=== PATIENT | male | born 1995 | race Caucasian/White ===

== ENCOUNTER 2018-08-29 19:45 | Emergency (ER) | payer SELFPAY ==
[2018-08-29 19:52] VITALS: BP 136/58; PULSE 89; RESP 14; TEMP 37.4; O2SAT 99
--- NOTE | 2018-08-29 19:59 | DI.RAD_ITS ---
SYMPTOM/DIAGNOSIS: PAIN, S/P FALL RIGHT HIP AND PELVIS: No acute fracture or dislocation is seen. The soft tissues are unremarkable. IMPRESSION: No acute abnormality.
--- NOTE | 2018-08-29 20:02 | ED.GENADUL_ITS ---
Discharge Plan Disposition Patient Disposition: HOME Condition: Stable Discharge Details Chief Complaint: Orthopedic Clinical Impression: Contusion of hip, right Primary Care Provider: Galdino Booker ED Provider: Maxwell Michaels Home Meds and New Rx's Prescriptions: No Action amoxicillin 500 MG capsule 500 mg PO BID Qty: 20 RF: 0 Discharge Instructions Instructions: Contusion in Adults (ED) Additional Instructions: You can take 1000mg tylenol and 600mg ibuprofen every 6 hours for pain as needed if pain continues next week see your primary care provider return to the emergency department if you have severe worsening of pain, or new symptoms such as chest pain or abdominal pain Medical Decision Making 22 yo male states yesterday he slipped and fell down a ramp, did not strike head or have loc. Has pain in the right hip especially with rom. Has no spine pain on exam, no headcahes or neck pain or abd tenderness. Intact distal sensation and pulses. Suspect contusion but will xray to eval for fx. Has no findings on exam to suggest cauda equina, urinating without difficulties and no saddle anesthesia xray negative on my read. If vrad agrees no acute findings will advise BALBIR and d/c home. Differential Diagnosis sprain, contusion, fx Imaging Data Radiologic Study: Attestation: I personally reviewed and interpreted this imaging study as follows: Imaging: X-Ray My impression: no acute findings HPI General Date/Time Provider Initiated Documentation: 08/29/18 19:50 . Limitations to Documentation: no limitations . Information obtained by: patient . History of Present Illness 22 year old M presents to the emergency department with the chief complaint of right hip pain, described as moderate, with intensity rated at 5. Quality is described as aching, Patient reports no radiation. Patient started experiencing this day(s) (1) and it has been constant. Rest improves symptom(s), Movement worsens symptoms . Patient notes no other symptoms.. Patient did receive the following treatments prior to arrival, none Related Data Home Medications Medication Instructions Recorded Confirmed amoxicillin 500 mg PO BID #20 capsule 09/04/17 Previous Rx's Medication Instructions Recorded amoxicillin 500 mg PO BID #20 capsule 09/04/17 Allergies Allergy/AdvReac Type Severity Reaction Status Date / Time No Known Allergies Allergy Unverified 08/29/18 19:55 Review of Systems Review of Systems All systems reviewed & are unremarkable except as noted in HPI and below Constitutional Denies chills, Denies fever(s) and Denies weakness Eyes Denies loss of vision ENT Denies change in voice Cardiovascular Denies chest pain and Denies dyspnea Respiratory Denies dyspnea Gastrointestinal Denies abdominal pain, Denies nausea and Denies vomiting Genitourinary Denies dysuria Integumentary/Breasts Denies rash Neurologic Denies loss of vision and Denies weakness PFSH Family History Mother No problems noted. Father Essential hypertension Antithrombin III deficiency Stroke Grandfather Personal history of malignant neoplasm Grandfather Personal history of malignant neoplasm Grandmother No problems noted. Grandmother No problems noted. Social History Smoking/Tobacco Use Status: Current every day Exam Const General: no acute distress Orientation: alert HENMT Head: normal to inspection Ears: external ears normal General nose exam: external nose normal Mouth: moist mucous membranes Eyes General: appearance normal, both eyes and all related structures Neck Neck: normal visual inspection Resp Effort & Inspection: normal respiratory effort and able to speak in complete sentences Cardio Rate: regular rate Skin General skin exam: no rashes or lesions noted Neuro General: alert and oriented x3 Extrem General: normal to inspection Psych Mental Status: mental status grossly normal
--- NOTE | 2018-08-29 20:48 | DI.VRAD_ITS ---
EXAM: XR Right Hip with Pelvis when Performed, 2 or 3 Views EXAM DATE/TIME: 08/29/2018 8:00 PM CLINICAL HISTORY: 22 years old, male; Injury or trauma; Fall; Work related; Initial encounter; Blunt trauma (contusions or hematomas); Right; Hip TECHNIQUE: XR Right hip with pelvis when performed, 2 or 3 views COMPARISON: No relevant prior studies available. FINDINGS: Bones/joints: Normal. No acute fracture. There is no evidence of malalignment or dislocation. Soft tissues: Normal. IMPRESSION: No acute findings. Dictated and Authenticated by: Nadir Cervantes MD. Ordering:TIFFANY Arreola MD
== END 2018-08-29 20:45 | disposition home or self-care (01) ==
LOC: ER 20:26
PROVIDERS: Emergency Provider Emergency Medicine; PCP Family Medicine
DX: S70.01XA Contusion of right hip, initial encounter (principal); W10.2XXA Fall (on)(from) incline, initial encounter
CPT/HCPCS: 99283; 73502; 99282

== ENCOUNTER 2019-05-14 10:07 | Emergency (ER) | payer OTHER, SELFPAY ==
[2019-05-14 10:09] VITALS: BP 118/59; PULSE 62; RESP 16; TEMP 36.9; O2SAT 99
--- NOTE | 2019-05-14 10:24 | DI.CT_ITS ---
EXAM: CT HEAD WO CLINICAL HISTORY: [place] after trauma. TECHNIQUE: A noncontrast cranial CT was performed. COMPARISON: HEAD AND CSPINE W/O CONTRAST from 04/09/2015 FINDINGS: There is a no evidence of an intra or extra-axial hemorrhage. There is no evidence of a mass. The donnell tricles are unremarkable. There is no evidence of a skull fracture. The images reveal some membrane t hickening in the ethmoid sinuses. The visualized portions of the maxillary sinuses are unremarkable. The frontal sinus is intact. There is no evidence of a mastoid effusion. IMPRESSION: No acute intracranial abnormality is demonstrated. Sinuses as visualized appear intact. There is no evidence of a mastoid effusion
--- NOTE | 2019-05-14 10:34 | ED.GENADUL_ITS ---
Discharge Plan Disposition Patient Disposition: HOME Condition: Stable Discharge Details Chief Complaint: Headache Clinical Impression: Contusion of head Primary Care Provider: Galdino Booker ED Provider: Timo Dave Home Meds and New Rx's Prescriptions: No Action No Known Home Meds RF: 0 Discharge Instructions Instructions: Contusion in Adults (ED) Additional Instructions: Home to rest. May use tylenol for minor aches and pains. Return for any acute concerns. Stand Alone Forms: Work Release Medical Decision Making 23-year-old male presents from work after being struck in the left christian by a hydraulic arm at work. He now has mild discomfort but no true pain. Tender overlying the christian on exam, given the size of the equipment that struck him, he is referred for CT scan of the head HPI General Mode of arrival: ambulatory . Date/Time Provider Initiated Documentation: 05/14/19 10:14 . Limitations to Documentation: no limitations . Information obtained by: patient . History of Present Illness 23 year old M presents to the emergency department with the chief complaint of Left christian pain after struck at work, described as mild, and is localized to the head and left. Patient reports no radiation. Patient started experiencing this hour(s) and it has been constant. No relieving factors improve symptom(s), No exacerbating factors reported . Patient notes no other symptoms.; denies nausea/vomiting and syncope. Patient did receive the following treatments prior to arrival, none Related Data Home Medications Medication Instructions Recorded Confirmed Unknown [No Known Home Meds] 05/14/19 05/14/19 Allergies Allergy/AdvReac Type Severity Reaction Status Date / Time No Known Allergies Allergy Unverified 05/14/19 10:16 General Stated Complaint: Headache MJ: 3 Review of Systems Review of Systems Narrative: Denies headache. Denies neck pain. Was not pushed to the ground. No loss of consciousness. Feels mildly out of sorts. 6 systems reviewed and negative. PFSH Family History Mother No problems noted. Father Essential hypertension Antithrombin III deficiency Stroke Grandfather Personal history of malignant neoplasm BREAST Grandfather Personal history of malignant neoplasm COLON Grandmother No problems noted. Grandmother No problems noted. Social History Smoking/Tobacco Use Status: Current every day Alcohol Intake: current Alcohol Intake frequency: a few times a week Drug use: Daily Substance use type: marijuana Do you feel safe at home: Yes Do you feel safe in your relationship?: Yes Exam Narrative Exam Narrative: GEN: awake, alert, oriented 3. Pleasant, well groomed, interactive. HEAD: Normocephalic, atraumatic, left christian tender to palpation but no significant swelling. ENT: Mucous membranes moist, oropharynx unremarkable, External ear exam unremarkable, TMs clear bilaterally EYES: PERRL, EOMI NECK: Full ROM, no ANTHONY, no menigismus CHEST/RESP: Nontender, clear to auscultation bilateral, no wheeze/rhonchi/rales CARDIOVASCULAR: RRR, no murmur, rub shahab. 2+ Rad pulse bilateral ABDOMEN: Soft, nontender, no mass. +Bowel sounds EXT: Full ROM, no edema, no rash Neuro: Grossly normal neurologic exam, conversant, interactive. Psych: Speech fluent, thoughts congruent, affect normal Course Vital Signs Vital signs: Vital Signs Temperature 36.9 C 05/14/19 10:09 Pulse 62 05/14/19 10:09 Respiratory Rate 16 05/14/19 10:09 Blood Pressure 118/59 L 05/14/19 10:09 Pulse Oximetry 99 05/14/19 10:09 Temperature 36.9 C 05/14/19 10:09 Temperature Source Skin 05/14/19 10:09 Pulse 62 05/14/19 10:09 Respiratory Rate 16 05/14/19 10:09 Respiratory Effort 05/14/19 10:16 Blood Pressure 118/59 L 05/14/19 10:09 Blood Pressure Position Sitting 05/14/19 10:09 Pulse Oximetry 99 05/14/19 10:09 Oxygen Delivery Method Room Air 05/14/19 10:09 Oxygen Flow Rate 0 05/14/19 10:09 Pain Level 2 05/14/19 10:18
[2019-05-14 11:33] VITALS: BP 111/65; PULSE 58; RESP 14; TEMP 37; O2SAT 98
== END 2019-05-14 11:37 | disposition home or self-care (01) ==
PROVIDERS: Emergency Provider Emergency Medicine; PCP Family Medicine
DX: S00.03XA Contusion of scalp, initial encounter (principal); W31.89XA Contact with other specified machinery, initial encounter; Y99.0 Civilian activity done for income or pay; R42 Dizziness and giddiness
CPT/HCPCS: 99284; 70450

== ENCOUNTER 2019-07-01 09:03 | Emergency (ER) | payer SELFPAY ==
[2019-07-01 09:08] VITALS: BP 133/77; PULSE 52; RESP 16; TEMP 36.5; O2SAT 100
--- NOTE | 2019-07-01 09:08 | ED.GENADUL_ITS ---
Discharge Plan Disposition Patient Disposition: HOME Condition: Stable Discharge Details Chief Complaint: Abd Prob Clinical Impression: Epigastric abdominal pain, Nausea Primary Care Provider: None,None ED Provider: Salima Staton Home Meds and New Rx's Prescriptions: New famotidine [Pepcid] 20 mg tablet 20 mg PO DAILY Qty: 14 RF: 0 ondansetron HCl [Zofran] 4 mg tablet 4 mg PO Q6H PRN (Reason: nausea and vomiting) Qty: 7 RF: 0 Discharge Instructions Instructions: Acute Nausea and Vomiting (ED), Epigastric Pain (ED) Additional Instructions: Drink plenty of fluids and get plenty of rest. Take steps to avoid or cut back smoking, alcohol and excessive coffee drinking as this may be worsening her symptoms. You will receive a call from care management regarding a follow-up appointment with the primary care doctor and with general surgery. You can also call general surgery to try to schedule the appointment. Return to the emergency department if you develop any worsening or new concerning symptoms. Stand Alone Forms: Work Release Referrals: Arlin Pop DO [OSTEOPATHIC DOCTOR] - Discharge Data Discharge Physician: Salima Staton Medical Decision Making 0915 -- 23-year-old male with constant sharp and aching epigastric abdominal pain for the past 7 months, worse with drinking coffee and better with eating grains and breads. Patient is a smoker, heavy coffee drinker, and frequent alcohol drinker. He d enies fever, urinary symptoms or vomiting. He has 4-5 bowel movements daily which is increased compared to his norm over the past 2 months, but they are near formed, dark brown, without black or tarry stools or bright red bleeding. Patient appears nontoxic. He has tenderness to palpation his epigastrium and right upper quadrant. Differential diagnosis includes GERD, gastritis, PUD, cholelithiasis, cholecystitis, pancreatitis. We will check screening labs, ultrasound and give a dose of Zofran, Pepcid and GI cocktail reassess. 1020 --patient reassessed -patient texting on phone on reevaluation. He states his symptoms are somewhat improved. Labs reviewed and unremarkable. Still awaiting to go to ultrasound. 1125 --ultrasound negative. Patient feels better and feels good to go home. He was placed on care management list to arrange for a follow-up appoint with the primary care doctor to establish care and also for a follow-up appointment with general surgery for evaluation and consideration of possible upper endoscopy. Will give a prescription for Pepcid and Zofran. He is advised to cut back on alcohol, coffee and cigarette smoking as this may be exacerbating his symptoms. He is advised to return here with any worsening or concerning symptoms. Medical Records Medical records reviewed: Yes I reviewed the patient's medical records. Lab Data Lab results reviewed: Yes I reviewed the patient's lab results. Labs: Laboratory Tests Range/Units 07/01/19 07/01/19 09:35 09:35 WBC (4.4-10.8) k/cumm 5.37 RBC (4.50-6.00) m/cumm 4.76 Hgb (13.5-17.5) g/dL 14.4 Hct (40.0-50.0) % 43.8 MCV (80-95) fL 92.0 MCH (27.0-33.0) pg 30.3 MCHC (32.0-36.0) g/dL 32.9 RDW (11.8-14.1) % 12.7 Plt Count (130-400) x1000/uL 243 MPV (8.0-11.0) fL 9.9 Immature Gran % 0.2 Neutrophils % 58.3 Lymphocytes % 29.8 Monocytes % 9.7 Eosinophils % 1.1 Basophils % 0.9 Absolute Neutrophils (1.2-6.7) k/cumm 3.13 Absolute Lymphocytes (1.2-3.4) k/cumm 1.60 Absolute Monocytes (0.11-0.7) k/cumm 0.52 Absolute Eosinophils (0.0-0.7) k/cumm 0.06 Absolute Basophils (0.0-0.2) k/cumm 0.05 Sodium (136-145) mmol/L 141 Potassium (3.5-5.1) mmol/L 3.6 Chloride (98-107) mmol/L 104 Carbon Dioxide (21.0-32.0) mmol/L 28.7 Anion Gap (3-11) mmol/L 8.3 BUN (7-18) mg/dL 15 Creatinine (0.70-1.30) mg/dL 1.02 Estimated GFR/1.73 m2 (mL/min/1.73m2) >= 60.00 Glucose (70-100) mg/dL 123 H Calcium (8.5-10.1) mg/dL 8.7 Total Bilirubin (0.2-1.0) mg/dL 0.3 AST (15-37) U/L 12 L ALT (16-63) U/L 24 Alkaline Phosphatase (46-116) U/L 54 Total Protein (6.4-8.2) g/dL 7.3 Albumin (3.4-5.0) g/dL 4.0 Lipase (73-393) U/L 135 HPI General Mode of arrival: ambulatory . Date/Time Provider Initiated Documentation: 07/01/19 09:05 . Limitations to Documentation: no limitations . Information obtained by: patient . History of Present Illness described as moderate, with intensity rated at 3. Quality is described as stabbing and aching, and is localized to the abdomen (epigastrium). Patient abdomen (to RUQ/LUQ). Patient started experiencing this month(s) (7) and it has been constant. other things that improve symptom(s), (grains, carbs, breads) Other factors that worsen symptoms (coffee) . Patient notes chest pain (intermittent, rare, none now) and other (occasional nausea, dry heaving, no vomiting); denies cough, diaphoresis, fever/chills, headaches, loss of appetite, malaise, rash, shortness of breath and weakness. Patient did receive the following treatments prior to arrival, none Related Data Home Medications Medication Instructions Recorded Confirmed famotidine [Pepcid] 20 mg PO DAILY #14 tab 07/01/19 ondansetron HCl [Zofran] 4 mg PO Q6H PRN #7 tab 07/01/19 Previous Rx's Medication Instructions Recorded famotidine [Pepcid] 20 mg PO DAILY #14 tab 07/01/19 ondansetron HCl [Zofran] 4 mg PO Q6H PRN #7 tab 07/01/19 Allergies Allergy/AdvReac Type Severity Reaction Status Date / Time No Known Allergies Allergy Unverified 07/01/19 09:12 General MJ: 3 Review of Systems All systems reviewed & are unremarkable except as noted in HPI and below Constitutional Constitutional: Reports as per HPI, Denies chills and Denies fever(s) Eyes Eyes: Denies blurry vision ENT Ears, Nose, Mouth, and Throat: Denies dizziness, Denies sore throat and Denies throat swelling Cardiovascular Cardiovascular: Denies chest pain and Denies dyspnea Respiratory Respiratory: Denies cough and Denies dyspnea Gastrointestinal Gastrointestinal: Reports abdominal pain, Denies diarrhea, Reports nausea and Denies vomiting Genitourinary Genitourinary: Denies hematuria and Denies dysuria Musculoskeletal Musculoskeletal: Denies back pain and Denies numbness Integumentary/Breasts Skin/Breast: Denies lesions and Denies rash Neurologic Neurologic: Denies dizziness, Denies focal weakness and Denies numbness Allergic/Immunologic Allergic/Immunologic: Denies throat swelling [facility] Medical History (Updated 07/01/19 @ 09:39 by Salima Staton DO) Antithrombin deficiency (Acute) Chronic pain in right shoulder (Acute) Depression (Chronic) Surgical History H/O wisdom tooth extraction (Acute) S/p bilateral myringotomy with tube placement (Acute) Family History Mother No problems noted. Father Essential hypertension Antithrombin III deficiency Stroke Grandfather Personal history of malignant neoplasm BREAST Grandfather Personal history of malignant neoplasm COLON Grandmother No problems noted. Grandmother No problems noted. Social History (Updated 07/01/19 @ 09:40 by Salima Staton DO) Smoking/Tobacco Use Status: Current every day Alcohol Intake: current Alcohol Intake frequency: 0-2 drinks per day Drug use: Daily Substance use type: marijuana Do you feel safe at home: Yes Do you feel safe in your relationship?: Yes Exam Const General: cooperative, healthy appearing, no acute distress and disheveled HENMT Head: normal to inspection Face and sinus: normal facial exam Eyes General: appearance normal, both eyes and all related structures EOM: EOM intact bilaterally Neck Neck: normal visual inspection and No submandibular swelling Lymphatic: no lymphadenopathy noted Chest Chest: normal inspection of the chest and no tenderness Resp Effort & Inspection: normal respiratory effort and able to speak in complete sentences Auscultation: clear to auscultation bilaterally Cardio Rate: regular rate Rhythm: regular rhythm GI Inspection: normal to inspection, no abdominal wall ecchymosis and non-distended Palpation: soft, not firm, not rigid and tender in the epigastrum and in the RUQ Auscultation: normal bowel sounds Back/Spine/Pelvis Back: no CVA tenderness Skin General skin exam: no rashes or lesions noted Neuro General: alert, awake and oriented x3 Cognition: normal cognition Speech: speech normal Motor: muscle tone normal throughout Sensory Exam: no sensory deficits noted Extrem General: normal to inspection, full ROM, normal capillary refill, no calf tenderness bilaterally and no edema Psych Appearance: grossly normal Mental Status: mental status grossly normal Speech and Movement: speech and movement normal Affect: normal affect
--- NOTE | 2019-07-01 09:28 | DI.US_ITS ---
EXAM: US ABDOMEN US ABDOMEN CLINICAL HISTORY: epigastric/RUQ pain, r/o cholecystitis/lithiasis. epigastric/RUQ pain, r/o cholecystitis/lithiasis TECHNIQUE: Ultrasound abdomen performed using standard protocol. COMPARISON: No exams were available for comparison FINDINGS: LIVER: Normal. GALLBLADDER: No evidence of cholelithiasis. No evidence of wall thickening. No pericholecystic fluid identified. KIDNEYS: Kidneys are symmetric in size. No evidence of renal calculi. No evidence of hydronephrosis. No renal mass or cyst identified. BILIARY SYSTEM: Common bile duct measures < 7 mm. No intrahepatic biliary ductal dilation. PATRICIA'S SIGN: Negative. PANCREAS: Normal where visualized. SPLEEN: Not enlarged. ABDOMINAL AORTA AND IVC: Visualized portions normal caliber. ASCITES: None seen. IMPRESSION: Normal sonographic appearance of the upper abdomen.
[2019-07-01 09:41] LABS: Abs Immature Grans 0.01 k/cumm (0.0-0.09); Absolute Basophil Count 0.05 k/cumm (0.0-0.2); Absolute Eosinophil Count 0.06 k/cumm (0.0-0.7); Absolute Monocyte Count 0.52 k/cumm (0.11-0.7); Absolute Neutrophil Count 3.13 k/cumm (1.2-6.7); Basophils % 0.9; Eosinophils % 1.1; HCT 43.8 % (40.0-50.0); HGB 14.4 g/dL (13.5-17.5); Immature Grans % 0.2; Lymphocytes % 29.8; Mean Corp. HGB Concentration 32.9 g/dL (32.0-36.0); Mean Corpuscular Hemoglobin 30.3 pg (27.0-33.0); Mean Platelet Volume 9.9 fL (8.0-11.0); Monocytes % 9.7; Neutrophils % 58.3; Platelet Count 243 x1000/uL (130-400); RBC 4.76 m/cumm (4.50-6.00); RBC Distribution Width 12.7 % (11.8-14.1); White Blood Cell Count 5.37 k/cumm (4.4-10.8)
[2019-07-01] MEDS: Famotidine 20 MG TAB PO (09:41)
[2019-07-01] MEDS: Ondansetron O.D.T. 4 MG TABEF PO (09:41)
[2019-07-01 09:59] LABS: ALT 24 U/L (16-63); AST 12 U/L (15-37); Alkaline Phosphatase 54 U/L (46-116); Anion Gap 8.3 mmol/L (3-11); BUN 15 mg/dL (7-18); Bilirubin, Total 0.3 mg/dL (0.2-1.0); CO2 28.7 mmol/L (21.0-32.0); CREATININE 1.02 mg/dL (0.70-1.30); Calcium 8.7 mg/dL (8.5-10.1); Chloride 104 mmol/L (98-107); Glucose 123 mg/dL (70-100); Lipase 135 U/L (73-393); Potassium 3.6 mmol/L (3.5-5.1); Sodium 141 mmol/L (136-145); Total Protein 7.3 g/dL (6.4-8.2)
[2019-07-01 10:22] VITALS: BP 124/57; PULSE 63; O2SAT 100
== END 2019-07-01 11:42 | disposition home or self-care (01) ==
PROVIDERS: Emergency Provider Physician Assistant
DX: R10.13 Epigastric pain (principal); R11.0 Nausea; F17.210 Nicotine dependence, cigarettes, uncomplicated
CPT/HCPCS: 36415; 80053; 83690; 99283; 76700; 85025

== ENCOUNTER 2019-08-21 09:05 | Outpatient (REF) | payer SELFPAY ==
[2019-08-21 12:27] LABS: HCT 44.8 % (40.0-50.0); HGB 14.5 g/dL (13.5-17.5); Mean Corp. HGB Concentration 32.4 g/dL (32.0-36.0); Mean Corpuscular Volume 92.8 fL (80-95); Mean Platelet Volume 10.8 fL (8.0-11.0); Platelet Count 260 x1000/uL (130-400); RBC 4.83 m/cumm (4.50-6.00); White Blood Cell Count 5.92 k/cumm (4.4-10.8)
[2019-08-21 12:37] LABS: ALT 23 U/L (16-63); AST 17 U/L (15-37); Albumin 4.3 g/dL (3.4-5.0); Alkaline Phosphatase 53 U/L (46-116); Anion Gap 8.5 mmol/L (3-11); BUN 14 mg/dL (7-18); Bilirubin, Total 0.3 mg/dL (0.2-1.0); CO2 29.5 mmol/L (21.0-32.0); Calcium 9.2 mg/dL (8.5-10.1); Chloride 105 mmol/L (98-107); Glucose 96 mg/dL (74-106); Potassium 4.1 mmol/L (3.5-5.1); Sodium 143 mmol/L (136-145); Total Protein 7.4 g/dL (6.4-8.2)
[2019-08-21 13:38] LABS: Bilirubin Negative (Negative); Blood Negative (Negative); Clarity Clear (Clear); Glucose Negative (Negative); Ketones Negative (Negative); Leukocyte Esterase Negative (Negative); Nitrite Negative (Negative)
[2019-08-24 15:05] LABS: IgA 237 mg/dL (85-499); Tissue Transglutaminase IgA <1.2 U/mL (<4.0)
== END 2019-08-21 09:25 ==
LOC: NCHCN 09:05
PROVIDERS: PCP Nurse Practitioner Family; Visit Provider Nurse Practitioner Family
DX: R10.13 Epigastric pain (principal)
CPT/HCPCS: 80053; 82784; 83516; 85027; 81003

== ENCOUNTER 2019-08-22 11:25 | Outpatient (REF) | payer SELFPAY ==
[2019-08-24 12:01] LABS: Campylobacter PCR Negative (Negative); Salmonella PCR Negative (Negative); Shiga Toxin PCR Negative (Negative); Shigella/Enteroinvasive Ecoli Negative (Negative)
== END 2019-08-22 11:45 ==
LOC: NCHCN 11:25
PROVIDERS: PCP Nurse Practitioner Family; Visit Provider Nurse Practitioner Family
DX: R10.13 Epigastric pain (principal)
CPT/HCPCS: 87329; 87505; 83630; 87324

== ENCOUNTER 2019-09-21 12:54 | Outpatient (REF) | payer OTHER, SELFPAY ==
[2019-09-21 18:34] LABS: HCT 43.6 % (40.0-50.0); HGB 14.5 g/dL (13.5-17.5); Mean Corp. HGB Concentration 33.3 g/dL (32.0-36.0); Mean Corpuscular Hemoglobin 30.5 pg (27.0-33.0); Mean Corpuscular Volume 91.6 fL (80-95); Mean Platelet Volume 10.4 fL (8.0-11.0); Platelet Count 231 x1000/uL (130-400); RBC 4.76 m/cumm (4.50-6.00); RBC Distribution Width 13.1 % (11.8-14.1); White Blood Cell Count 6.86 k/cumm (4.4-10.8)
[2019-09-21 19:11] LABS: C-Reactive Protein 0.39 mg/dL (0.0-0.3)
== END 2019-09-21 13:14 ==
LOC: NCHCN 12:54
PROVIDERS: PCP Nurse Practitioner Family; Visit Provider Nurse Practitioner Family
DX: R10.13 Epigastric pain (principal); R19.7 Diarrhea, unspecified
CPT/HCPCS: 85027; 86140

== ENCOUNTER 2019-09-28 01:40 | Outpatient (CLI) | payer OTHER, SELFPAY ==
--- NOTE | 2019-09-28 07:28 | DI.US_ITS ---
EXAM: US ABDOMEN CLINICAL HISTORY: EPIGASTRIC PAIN, R10.13, DIARRHEA, R19.7 TECHNIQUE: Ultrasound abdomen performed using standard protocol. COMPARISON: US ABDOMEN from 07/01/2019 FINDINGS: LIVER: Normal echogenicity. Mild hepatomegaly. Hepatopetal flow is seen through the portal vein. GALLBLADDER: No evidence of cholelithiasis. No evidence of wall thickening. No pericholecystic fluid identified. KIDNEYS: Kidneys are symmetric in size. No evidence of renal calculi. No evidence of hydronephrosis. No renal mass or cyst identified. BILIARY SYSTEM: Common bile duct measures 2 mm. No intrahepatic biliary ductal dilation. PATRICIA'S SIGN: Negative. PANCREAS: Normal where visualized. SPLEEN: Not enlarged. ABDOMINAL AORTA AND IVC: Visualized portions normal caliber. ASCITES: None seen. IMPRESSION: Mild hepatomegaly.
== END 2019-09-28 02:00 ==
PROVIDERS: PCP Nurse Practitioner Family; Visit Provider Nurse Practitioner Family
DX: R10.13 Epigastric pain (principal); R19.7 Diarrhea, unspecified; R16.0 Hepatomegaly, not elsewhere classified
CPT/HCPCS: 76700

== ENCOUNTER 2019-11-02 12:15 | Emergency (ER) | payer OTHER, SELFPAY ==
[2019-11-02 12:20] VITALS: BP 117/64; PULSE 54; RESP 16; TEMP 36.4; O2SAT 98
--- NOTE | 2019-11-02 13:55 | DI.RAD_ITS ---
EXAM: XR THORACIC SPINE COMPLETE CLINICAL HISTORY: pain. TECHNIQUE: 2D digital imaging was performed. COMPARISON: No exams were available for comparison FINDINGS: BONES: There is no fracture or destructive lesion. The vertebral bodies and posterior elements are un remarkable. DISKS:Alignment is within normal limits. Interverebral disc spaces are maintained. SOFT TISSUE: Visualized lungs are clear. IMPRESSION: Unremarkable radiographs of the thoracic spine. DATA REPOSITORY: RADIATION DOSE DELIVERED:
[2019-11-02 14:48] VITALS: BP 118/67; PULSE 48; RESP 20; O2SAT 99
--- NOTE | 2019-11-02 15:57 | W.ED.GENAD ---
Discharge Plan Disposition Patient Disposition: HOME Condition: Stable Discharge Details Chief Complaint: Orthopedic Clinical Impression: Muscle spasm Primary Care Provider: Arturo Maldonado ED Provider: Rhonda Chatman Home Meds and New Rx's Prescriptions: New cyclobenzaprine 10 mg tablet 10 mg PO TID PRN (Reason: muscle spasm) Qty: 10 RF: 0 No Action acetaminophen [Acetaminophen Extra Strength] 500 mg Tablet 1,000 mg PO QID PRNRF: 0 Discharge Instructions Instructions: Muscle Spasm (ED) Additional Instructions: Drink plenty of fluids. Rest activities as tolerated. Avoid heavy lifting. Use Motrin or Tylenol for soreness if needed. Ice for the next 5 days then you may use heat thereafter. Use muscle relaxant as prescribed if needed for pain. Follow-up with PCP if not improving the next 5 days. Return for any worsening, concerns or alarming symptoms sooner if needed Stand Alone Forms: Work Release Discharge Data Discharge Date/Time-TO BE ENTERED AT DEPARTURE: 11/02/19 15:44 Medical Decision Making 24-year-old patient presenting for pain in his back and shoulder which he reports began after throwing and moving 3 cords of firewood. Patient reports pain is worse with range of motion of arm. Patient denies chest pain, difficulty beating shortness of breath or wheezing. Patient denies any neck pain associated. Patient denies any paresthesias associated. On physical exam patient has thoracic pain with palpation as well as paraspinal tenderness along the left side of his thoracic spine. Plan to check x-ray of spine given patient's complaints of pain. Patient well-appearing, patient's vital signs reviewed. X-ray reveals unremarkable. Recommend a muscle relaxant, rest, ice. The patient was stable and requested discharge. Prior to discharge, my usual and customary return precautions were reviewed with the patient - this included follow-up instructions and reasons to return to the Emergency Department if conditions worsens, does not improve as expected, or other new concerns arise. Patient did leave the emergency department prior to discharge. Nurse will contact patient and send prescription as well as discharge papers to the patient this was his request prior to leaving. HPI General Date/Time Provider Initiated Documentation: 11/02/19 12:39. HPI Narrative: This is a 24-year-old patient presenting the emergency room with complaints of left shoulder and back pain. Patient indicates the shoulder blade area as maximum site of pain. Patient reports pain noted after throwing firewood over the weekend. Patient reports he moved approximately 3 cords of firewood. Patient denied any obvious pain immediately thereafter but did subsequently develop pain in the left shoulder blade area. Patient denies any focal injury, or falls. Patient denies numbness, tingling or weakness associated in arms or legs. Patient denies neck pain associated. Patient reports full range of motion of neck. Patient reports pain with left shoulder range of motion. Patient denies any other sites of pain or concerns. Denies any chest pain, difficulty beating shortness of breath or wheezing. Patient ambulating without difficulty. Related Data Home Medications Medication Instructions Recorded Confirmed acetaminophen [Acetaminophen Extra 1,000 mg PO QID PRN 11/02/19 11/02/19 Strength] cyclobenzaprine 10 mg PO TID PRN #10 tab 11/02/19 Previous Rx's Medication Instructions Recorded cyclobenzaprine 10 mg PO TID PRN #10 tab 11/02/19 Allergies Allergy/AdvReac Type Severity Reaction Status Date / Time No Known Allergies Allergy Unverified 11/02/19 12:23 General Stated Complaint: Orthopedic MJ: 4 Review of Systems All systems reviewed & are unremarkable except as noted in HPI and below Constitutional Constitutional: Denies headache(s) and Denies malaise ENT Ears, Nose, Mouth, and Throat: Denies headache(s) and Denies neck pain Cardiovascular Cardiovascular: Denies dyspnea and Denies dyspnea on exertion Respiratory Respiratory: Denies cough, Denies pain on inspiration, Denies pain with cough, Denies dyspnea and Denies dyspnea on exertion Musculoskeletal Musculoskeletal: Reports back pain, Denies deformity, Denies neck pain, Denies numbness, Denies stiffness and Denies tingling Neurologic Neurologic: Denies headache(s), Denies numbness and Denies tingling [facility] Medical History Antithrombin deficiency (Acute) Chronic pain in right shoulder (Acute) Depression (Chronic) Surgical History H/O wisdom tooth extraction (Acute) S/p bilateral myringotomy with tube placement (Acute) Social History Smoking/Tobacco Use Status: Current every day Alcohol Intake: current Alcohol Intake frequency: a few times a week Drug use: Daily Substance use type: marijuana Do you feel safe at home: Yes Do you feel safe in your relationship?: Yes Exam Narrative Exam Narrative: CONST: Healthy appearing patient, in no acute distress. Well hydrated. Alert and oriented. NECK: Normal visual inspection. FROM. Trachea midline. No Midline tenderness. CHEST: Normal insepection of the chest. RESP: Normal respiratory effort. Speaking full sentences. No cough. No audible wheezing. No retractions. CARDIO: No JVD. No murmur. Regular rate and rhythm MUSCULOSKELETAL: Normal Gait. FROM of all extremities. No focal tenderness of left shoulder anteriorly or posteriorly. No clavicle pain with palpation. No humeral pain with palpation of elbow pain with palpation but forearm pain with palpation wrist pain with palpation. Full range of motion of left arm. Back: no cervical pain with palpation, patient does have mild thoracic pain with palpation on exam of the midline. Paraspinal tenderness is present on the left. No lumbar tenderness with palpation SKIN: Normal. Dry. No rashes. NEURO: Alert and awake. Speech clear. PSYCH: Normal affect. Cooperative. Course Vital Signs Vital signs: Vital Signs Temperature 36.4 C L 11/02/19 12:20 Pulse 54 L 11/02/19 12:20 Respiratory Rate 16 11/02/19 12:20 Blood Pressure 117/64 11/02/19 12:20 Pulse Oximetry 98 11/02/19 12:20 Temperature 36.4 C L 11/02/19 12:20 Temperature Source Skin 11/02/19 12:20 Pulse 48 L 11/02/19 14:48 Respiratory Rate 20 11/02/19 14:48 Respiratory Effort Non-Labored 11/02/19 12:23 Blood Pressure 118/67 11/02/19 14:48 Blood Pressure Position Sitting 11/02/19 12:20 Pulse Oximetry 99 11/02/19 14:48 Oxygen Delivery Method Room Air 11/02/19 14:48 Oxygen Flow Rate 0 11/02/19 14:48 Pain Level 5 11/02/19 14:48 Comment 11/02/19 12:20
== END 2019-11-02 15:44 | disposition home or self-care (01) ==
PROVIDERS: Emergency Provider Physician Assistant; PCP Nurse Practitioner Family
DX: M62.830 Muscle spasm of back (principal); M62.838 Other muscle spasm; X50.3XXA Overexertion from repetitive movements, initial encounter
CPT/HCPCS: 99284; 72072; 99283

== ENCOUNTER 2020-02-08 18:12 | Outpatient (REF) | payer OTHER, SELFPAY ==
[2020-02-09 09:18] LABS: HBs Antibody, Quant 7.8 mIU/mL (See Note); Hepatitis B Surface Ab Negative (See Note); Hepatitis B Surface Ag Negative (Negative)
[2020-02-09 09:55] LABS: HIV-1/2 Ag & Ab Screen Negative (Negative)
[2020-02-09 10:01] LABS: Syphilis Serology (RPR) Negative (Negative)
[2020-02-10 08:57] LABS: Chlamydia Result Negative (Negative); GC Result Negative (Negative)
== END 2020-02-08 18:32 ==
LOC: NCHCN 18:12
PROVIDERS: PCP Nurse Practitioner Family; Visit Provider Nurse Practitioner Family
DX: Z20.2 Contact with and (suspected) exposure to infections with a predominantly sexual mode of transmission (principal); Z11.59 Encounter for screening for other viral diseases; Z11.4 Encounter for screening for human immunodeficiency virus [HIV]; Z11.3 Encounter for screening for infections with a predominantly sexual mode of transmission
CPT/HCPCS: 86706; 87340; 87389; 87491; 87591; 86592

== ENCOUNTER 2020-08-21 15:14 | Emergency (ER) | payer SELFPAY ==
[2020-08-21 15:19] VITALS: PULSE 81; RESP 16; TEMP 36.5; O2SAT 95
--- NOTE | 2020-08-21 15:41 | W.ED.GENAD ---
Discharge Plan Disposition Patient Disposition: HOME Condition: Stable Discharge Details Clinical Impression: Back pain Primary Care Provider: Arturo Maldonado ED Provider: Shahid Arias Home Meds and New Rx's Prescriptions: New ibuprofen 800 mg tablet 800 mg PO TID 10 Days Qty: 30 RF: 0 Discharge Instructions Instructions: Back Pain (ED) Additional Instructions: Motrin as directed. Gentle stretching as tolerated. Cool and/or warm compresses every 2 hours for 20 minutes. Please watch for new or worsening symptoms and return to the ER for any concerns. I am giving you a work note for the next 3 days. I strongly recommend contacting your primary care provider tomorrow for prompt outpatient reevaluation. If your symptoms are not improving with conservative therapy then physical therapy and/or referral to orthopedics for potential injection may be indicated. Stand Alone Forms: Work Release Discharge Data Discharge Date/Time-TO BE ENTERED AT DEPARTURE: 08/21/20 15:49 Medical Decision Making This is a 24-year-old gentleman who injured his left lower back 3 days ago while at work. He states he was moving heavy furniture and accidentally tweaked his back. He denies fever, midline point tenderness, abdominal pain, pain rating into his groin, down his leg. Denies numbness, tingling, weakness. Denies bowel or bladder incontinence-retention. Clinically this appears to musculoskeletal in nature. He is neuro, vascular, tendon intact. He has not taken any [id number] medications for his discomfort. Given the mechanism of injury, lack of neurologic symptoms, lack of midline point tenderness, do not believe that emergent x-ray is indicated here in the ER. Discussed my thought process with patient, he is agreeable to this. We discussed conservative therapy of anti-inflammatory medication, gentle stretching, cool and/or warm compresses, and the importance of outpatient follow-up. If conservative therapy does not help his discomfort that he may require injection over the SI joint, referral to PT, orthopedics, advanced imaging, etc. Patient understands this and has no additional questions or concerns. 60 IM Toradol given prior to discharge. Patient remains neurologically intact. Able to ambulate from the ER without difficulty. Medical Records Medical records reviewed: Yes I reviewed the patient's medical records. HPI General Mode of arrival: ambulatory. Date/Time Provider Initiated Documentation: 08/21/20 15:25. Limitations to Documentation: no limitations. Information obtained by: patient. HPI Narrative: This is a 24-year-old gentleman with no significant past medical history. He reports that on Saturday while at work he was moving a heavy piece of furniture, stepped awkwardly tweaking his left lower back. He reports moderate pain ever since, worse with movement. Denies radiation of pain into his abdomen, down his leg, into his groin. Denies numbness, tingling, weakness bowel or bladder retention or incontinence. He has never injured his back before. He has not taken any [id number]-nfo-[id number] medications for his symptoms. Related Data Home Medications Medication Instructions Recorded Confirmed ibuprofen 800 mg PO TID 10 Days #30 tab 08/21/20 Previous Rx's Medication Instructions Recorded ibuprofen 800 mg PO TID 10 Days #30 tab 08/21/20 Allergies Allergy/AdvReac Type Severity Reaction Status Date / Time No Known Allergies Allergy Unverified 08/21/20 15:23 General Stated Complaint: Nk/Back Pain MJ: 4 Review of Systems Constitutional Constitutional: Denies fever(s) and Denies weakness Gastrointestinal Gastrointestinal: Denies abdominal pain, Denies constipation, Denies fecal incontinence, Denies nausea and Denies vomiting Genitourinary Genitourinary: Denies difficulty urinating and Denies urinary incontinence Musculoskeletal Musculoskeletal: Reports back pain, Denies arthralgias, Denies numbness and Denies tingling Integumentary/Breasts Skin/Breast: Denies rash Neurologic Neurologic: Denies numbness, Denies tingling and Denies weakness [facility] Medical History Antithrombin deficiency Chronic pain in right shoulder Depression Surgical History H/O wisdom tooth extraction S/p bilateral myringotomy with tube placement Family History Mother No problems noted. Father Essential hypertension Antithrombin III deficiency Stroke Grandfather Personal history of malignant neoplasm BREAST Grandfather Personal history of malignant neoplasm COLON Grandmother No problems noted. Grandmother No problems noted. Social History Smoking/Tobacco Use Status: Current every day Smoking risk assessment performed?: Yes Alcohol Intake: current Alcohol Intake frequency: a few times a week Alcohol type: hard liquor Drug use: Daily Substance use type: marijuana Do you feel safe at home: Yes Do you feel safe in your relationship?: Yes Exam Const General: cooperative, healthy appearing, comfortable and no acute distress Orientation: alert and awake [facility] Head: normal to inspection, normocephalic and atraumatic Eyes General: appearance normal, both eyes and all related structures Conjunctivae: conjunctivae normal Sclera: sclerae normal Neck Neck: normal visual inspection, full ROM, no meningeal signs, trachea midline and supple Resp Effort & Inspection: normal respiratory effort and able to speak in complete sentences Auscultation: clear to auscultation bilaterally Cardio Rate: regular rate Rhythm: regular rhythm GI Palpation: soft, not firm, no guarding and nontender Back/Spine/Pelvis Back: no CVA tenderness and back tenderness (Diffuse left lower, point tenderness over SI joint) Thoracic/Lumbar Spine: thoracic and lumbar spine normal to inspection, thoraco-lumbar ROM normal, pain with thoraco-lumbar ROM, No thoracic spinal tenderness, No lumbar spinal tenderness, straight leg raise positive (Left, 15 degrees) and other Skin General skin exam: no rashes or lesions noted Neuro General: patient alert, patient awake, moves all extremities and no focal motor deficits Cognition: normal cognition Speech: speech normal Gait: antalgic Motor: muscle tone normal throughout Sensory Exam: no sensory deficits noted Extrem General: normal to inspection, full ROM, capillary refill normal, no pedal edema and no calf tenderness Psych Appearance: grossly normal Mental Status: mental status grossly normal Course Vital Signs Vital signs: Vital Signs Temperature 36.5 C 08/21/20 15:19 Pulse 81 08/21/20 15:19 Respiratory Rate 16 08/21/20 15:19 Pulse Oximetry 95 08/21/20 15:19 Temperature 36.5 C 08/21/20 15:19 Temperature Source Skin 08/21/20 15:19 Pulse 81 08/21/20 15:19 Respiratory Rate 16 08/21/20 15:19 Respiratory Effort Non-Labored 08/21/20 15:19 Blood Pressure Position Sitting 08/21/20 15:19 Pulse Oximetry 95 08/21/20 15:19 Oxygen Delivery Method Room Air 08/21/20 15:19 Oxygen Flow Rate 0 08/21/20 15:19 Pain Level 10 08/21/20 15:19
[2020-08-21] MEDS: Ketorolac 60 MG/2 ML VIAL IM (15:46)
== END 2020-08-21 15:49 | disposition home or self-care (01) ==
PROVIDERS: Emergency Provider Physician Assistant; PCP Nurse Practitioner Family
DX: M54.5 Low back pain (principal); X50.0XXA Overexertion from strenuous movement or load, initial encounter
CPT/HCPCS: 96372; 99284; 99283; J1885

== ENCOUNTER 2021-10-22 19:12 | Emergency (ER) | payer SELFPAY ==
--- NOTE | 2021-10-22 19:15 | DI.RAD_ITS ---
Exam(s) XR SHOULDER RT COMPLETE 2+V EXAM: XR SHOULDER RT COMPLETE 2+V CLINICAL HISTORY: trauma, pain. TECHNIQUE: 2D digital imaging was performed. COMPARISON: MR MRI R UPPER JOINT WO CONT from 01/29/2013 FINDINGS: BONES: No acute fracture is present. No bony destructive lesion is seen. JOINTS: No dislocation present. SOFT TISSUE: Normal. IMPRESSION: Unremarkable radiographs of the right shoulder. DATA REPOSITORY: RADIATION DOSE DELIVERED:
[2021-10-22 19:20] VITALS: BP 132/73; PULSE 94; RESP 16; TEMP 37; O2SAT 99
--- NOTE | 2021-10-22 20:04 | DI.VRAD_ITS ---
PROCEDURE INFORMATION: Exam: XR Right Shoulder Exam date and time: 10/22/2021 19:25 Age: 26 years old Clinical indication: Other: Trauma, pain TECHNIQUE: Imaging protocol: XR Right shoulder. Views: 2 or more views. COMPARISON: CR PORTABLE CHEST ONE VIEW 04/10/2015 07:41 FINDINGS: Bones/joints: No acute fracture or subluxation. Soft tissues: Normal. IMPRESSION: No acute bony pathology. Dictated and Authenticated by: Mesha Barton MD. Ordering:BRIDGER Adamson MD
--- NOTE | 2021-10-22 20:08 | ED.GENADUL_ITS ---
Discharge Plan Disposition Patient Disposition: HOME Condition: Stable Discharge Details Clinical Impression: Contusion of right shoulder Primary Care Provider: Arturo Maldonado ED Provider: Snow Spangler Home Meds and New Rx's Prescriptions: No Action No Known Home Meds 0RF Discharge Instructions Instructions: Shoulder Dislocation Exercises (GEN), Contusion in Adults (ED) Additional Instructions: wear sling for comfort for 1-2 days, then start gentle shoulder exercises. ice to affected area 4-5 times daily for 20 minutes use ibuprofen 600 mg 4 times daily with food for 5 days can add acetaminophen 650 mg 4 times daily for breakthrough pain. Referrals: Arturo Maldonado NP [Primary Care Provider] - Discharge Data Discharge Date/Time-TO BE ENTERED AT DEPARTURE: 10/22/21 20:30 Medical Decision Making <Snow Spangler NP - Last Filed: 10/22/21 21:24> patient presents with c/o possible right shoulder dislocation. no obvious deformity noted, passive ROM with full ROM. given ICE pack, ibuprofen 800 mg and acetaminophen 1000 mg / xray with no bony abnormality or dislocation sling applied, good csmt's distally after application Medical Records Medical records reviewed: Yes I reviewed the patient's medical records. Imaging Data Radiologic Study: Imaging: X-Ray Radiologist's impression: Exam(s) PROCEDURE INFORMATION: Exam: XR Right Shoulder Exam date and time: 10/22/2021 19:25 Age: 26 years old Clinical indication: Other: Trauma, pain TECHNIQUE: Imaging protocol: XR Right shoulder. Views: 2 or more views. COMPARISON: CR PORTABLE CHEST ONE VIEW 04/10/2015 07:41 FINDINGS: Bones/joints: No acute fracture or subluxation. Soft tissues: Normal. IMPRESSION: No acute bony pathology. Dictated and Authenticated by: Mesha Barton MD. Ordering:BRIDGER Adamson MD <Salima Staton DO - Last Filed: 10/23/21 08:50> patient presents with c/o possible right shoulder dislocation. no obvious deformity noted, passive ROM with full ROM. given ICE pack, ibuprofen 800 mg and acetaminophen 1000 mg / xray with no bony abnormality or dislocation sling applied, good csmt's distally after application Dr. Staton -- pt not seen or evaluated by me but I was available for consultation in the emergency department. HPI <Snow Spangler NP - Last Filed: 10/22/21 21:24> General Date/Time Provider Initiated Documentation: 10/22/21 19:12 . Limitations to Documentation: no limitations . Information obtained by: patient . HPI Narrative: patient presents for evaluation of right shoulder pain following an injury while wrestling where he feel onto it. he has dislocated in the past and feels the same. no other injury Related Data Home Medications Medication Instructions Recorded Confirmed Unknown [No Known Home Meds] 10/22/21 10/22/21 Allergies Allergy/AdvReac Type Severity Reaction Status Date / Time No Known Allergies Allergy Unverified 10/22/21 19:24 General Stated Complaint: Orthopedic MJ: 4 Review of Systems <Snow Spangler NP - Last Filed: 10/22/21 21:24> All systems reviewed & are unremarkable except as noted in HPI and below Constitutional Constitutional: Denies headache(s) Eyes Eyes: Denies loss of vision ENT Ears, Nose, Mouth, and Throat: Denies vertigo, Denies dizziness and Denies headache(s) Cardiovascular Cardiovascular: Denies chest pain and Denies dyspnea Respiratory Respiratory: Denies dyspnea Musculoskeletal Musculoskeletal: Denies deformity, Reports arthralgias, Denies joint swelling and Denies numbness Integumentary/Breasts Skin/Breast: Reports other (redness and imprint of mat on his shoulder at area of impact) Neurologic Neurologic: Denies confusion, Denies vertigo, Denies dizziness, Denies headache(s), Denies loss of vision, Denies numbness and Denies other visual disturbances Psychiatric Psychiatric: Denies confusion PFSH <Snow Spangler NP - Last Filed: 10/22/21 21:24> All Active Problems (Updated 10/22/21 @ 20:11 by Snow Spangler NP) Contusion of right shoulder (Acute) Medical History (Updated 10/22/21 @ 20:11 by Snow Spangler NP) Antithrombin deficiency Chronic pain in right shoulder Depression Surgical History H/O wisdom tooth extraction S/p bilateral myringotomy with tube placement Family History Mother No problems noted. Father Essential hypertension Antithrombin III deficiency Stroke Grandfather Personal history of malignant neoplasm BREAST Grandfather Personal history of malignant neoplasm COLON Grandmother No problems noted. Grandmother No problems noted. Social History Smoking/Tobacco Use Status: Current every day Smoking risk assessment performed?: Yes Alcohol Intake: current Alcohol Intake frequency: a few times a week Alcohol type: hard liquor Drug use: Daily Substance use type: marijuana Do you feel safe at home: Yes Do you feel safe in your relationship?: Yes Exam <Snow Spangler NP - Last Filed: 10/22/21 21:24> Const General: cooperative, healthy appearing and acute distress mild Nutritional Appearance: average body habitus Orientation: alert, awake and oriented x3 HENMT Head: normal to inspection, normocephalic and atraumatic Mouth: oral mucosae normal Eyes General: appearance normal, both eyes and all related structures Neck Neck: normal visual inspection, full ROM and nontender Resp Effort & Inspection: normal respiratory effort Cardio Rate: regular rate Rhythm: regular rhythm Skin Rashes: rashes noted (right shoulder, abrasion) Neuro General: patient alert, patient awake and patient oriented x3 Extrem General: normal to inspection, full ROM and no edema Right upper extremity: shoulder/upper arm Details: tenderness Location: of the proximal humerus and normal ROM Course <BART Fairchild Last Filed: 10/22/21 21:24> Vital Signs Vital signs: Vital Signs Temperature 37.0 C 10/22/21 19:20 Pulse 94 H 10/22/21 19:20 Respiratory Rate 16 10/22/21 19:20 Blood Pressure 132/73 10/22/21 19:20 Pulse Oximetry 99 10/22/21 19:20 Temperature 37.0 C 10/22/21 19:20 Temperature Source Skin 10/22/21 19:20 Pulse 94 H 10/22/21 19:20 Respiratory Rate 16 10/22/21 19:20 Respiratory Effort Non-Labored 10/22/21 19:24 Blood Pressure 132/73 10/22/21 19:20 Pulse Oximetry 99 10/22/21 19:20 Pain Level 5 10/22/21 19:20 PAWSS <BART Fairchild Last Filed: 10/22/21 21:24> Have you Been Recently Intoxicated or Drunk Within the Last 30 days?: No Have you Ever Experienced Previous Episodes of Alcohol Withdrawal?: No Have you ever Experienced Withdrawal Seizures?: No Have you ever Experienced Delirium Tremens(DT)s?: No Have you ever undergone Alcohol Rehabilitation Treatment (i.e, inpt ot outpatient treatment programs)?: No Have you ever Experienced Blackouts?: No Have you ever Combined Alcohol with other Downers within the last 90 days?: No Have you ever Combined Alcohol with any other Substance of Abuse during the last 90 days?: No Positive Blood Alcohol level on Presentation? [PCS.BAL]: No Evidence of Increased Autonomic Activity (i.e. HR>120, tremor, sweating, agitation, nausea)?: No Result: 0 <Salima Staton DO - Last Filed: 10/23/21 08:50> Result: 0
[2021-10-22] MEDS: Ibuprofen 800 MG TAB PO (20:16)
[2021-10-22] MEDS: Acetaminophen 500 MG TAB 1000 MG PO (20:16)
[2021-10-22 20:26] VITALS: BP 124/72; PULSE 65; RESP 14; TEMP 37.3; O2SAT 98
== END 2021-10-22 20:30 | disposition home or self-care (01) ==
PROVIDERS: Emergency Provider Nurse Practitioner Acute Care; PCP Nurse Practitioner Family
DX: S40.011A Contusion of right shoulder, initial encounter (principal); X50.1XXA Overexertion from prolonged static or awkward postures, initial encounter
CPT/HCPCS: 99283; 73030

== ENCOUNTER 2021-12-07 07:35 | Observation (INO) | payer SELFPAY ==
[2021-12-07] VITALS (12 sets, daily range): BP systolic 90–116; BP diastolic 53–76; PULSE 51–87; RESP 14–16; TEMP 35.8–36.8; O2SAT 96–100
--- NOTE | 2021-12-07 08:03 | DI.US_ITS ---
Exam(s) US ABDOMEN LIMITED EXAM: US ABDOMEN LIMITED CLINICAL HISTORY: RUQ pain, nausea, r/o cholelithiasis/cholecystitis TECHNIQUE: Ultrasound examination of the right upper quadrant was performed according to the usual p rotocol. COMPARISON: US US ABDOMEN from 09/28/2019 FINDINGS: The liver is normal in size and shape. Hepatic parenchyma shows normal echotexture. No focal lesion identified. Portal venous flow is hepatopetal. No evidence of cholelithiasis. No biliary dilatation. Unremarkable appearance of the pancreas. Right kidney appears normal with no hydronephrosis or nephrolithiasis. Abdominal aorta and IVC are of normal diameter. IMPRESSION: Normal right upper quadrant ultrasound. RADIATION DOSE DELIVERED: Total DLP
--- NOTE | 2021-12-07 08:05 | W.ED.GENAD ---
Discharge Plan Disposition Patient Disposition: [facility] INPATIENT Condition: Stable Discharge Details Clinical Impression: Pulmonary embolism, Pulmonary infarct, Community acquired pneumonia, Antithrombin deficiency Primary Care Provider: None,None ED Provider: Salima Staton Home Meds and New Rx's Prescriptions: New amoxicillin-pot clavulanate 875-125 mg tablet 1 tab PO BID 7 Days Qty: 14 0RF Medical Decision Making 0800 -- 26-year-old male presents with a history of nausea and right upper quadrant pain for the past 10+ days. Vitals within normal limits. Patient appears uncomfortable. His abdomen is soft but significantly tender in the epigastrium and right upper quadrant. He otherwise has no rigidity or guarding or no peritoneal signs. Differential diagnosis includes cholelithiasis, cholecystitis, gastritis, PUD, pancreatitis. Will place an IV, bolus IV fluids, screening labs, gallbladder ultrasound and give a dose of morphine, Zofran, Pepcid and reassess. 0900 -- labs and imaging reviewed and unremarkable. White blood cell count 11. Normal electrolytes, LFTs and lipase. Normal gallbladder ultrasound. Patient reassessed and he is still complaining of pain and nausea. We will give a dose of Phenergan IV and once able to tolerate p.o., Carafate and GI cocktail. Will obtain a CT abdomen and pelvis. 1000 --CT reviewed and no acute findings within the abdomen but does note a bibasilar pneumonia, significantly worse on the right. This likely explains patient right upper quadrant abdominal pain and pain with deep breath. Upon further questioning, he does endorse that he has had a cough and shortness of breath for a long time. 1115 --D-dimer elevated. With patient's history of Antithrombin deficiency, will obtain a CT chest. 1215 --CT chest notes: Right lower lobe pulmonary embolus with presumed associated pulmonary infarct. Case discussed with hospitalist team who accepts patient for admission and is requesting Eliquis PO. Patient was given a dose of Augmentin p.o. for his pneumonia. No other antibiotic recommendations at this time. Patient is agreeable with plan for admission. Medical Records Medical records reviewed: Yes I reviewed the patient's medical records. Imaging Data Radiologic Study: Radiologist's impression: US ABDOMEN LIMITED CLINICAL HISTORY:? RUQ pain, nausea, r/o cholelithiasis/cholecystitis TECHNIQUE:? Ultrasound examination of the right upper quadrant was performed according to the usual protocol. COMPARISON:? US US ABDOMEN from 09/28/2019 FINDINGS: The liver is normal in size and shape.? Hepatic parenchyma shows normal echotexture.? No focal lesion identified. Portal venous flow is hepatopetal. No evidence of cholelithiasis. No biliary dilatation. Unremarkable appearance of the pancreas. Right kidney appears normal with no hydronephrosis or nephrolithiasis. Abdominal aorta and IVC are of normal diameter. IMPRESSION: Normal right upper quadrant ultrasound. CT ABDOMEN ? PELVIS W CLINICAL HISTORY:? RU/RLQ pain,r/ogastritis/pancreatitis/appendicitis TECHNIQUE:? COMPARISON:? No exams were available for comparison FINDINGS: CT examination of the abdomen and pelvis was performed with bolus infusion of 100 cc of Omnipaque 350. Note is made of areas of apparent consolidation in the right lower pulmonary lobe with some small areas of consolidation also present in the left lung base.? There is a small right pleural effusion and a tiny quantity of sub diaphragmatic fluid is also present.. The liver appears normal with no evidence of a focal mass. Spleen is unremarkable in appearance.. ? Gallbladder and bile ducts are unremarkable. Pancreas is unremarkable in appearance. Adrenals appear normal bilaterally. Kidneys appear normal with no evidence of renal mass, hydronephrosis, or nephrolithiasis.? Unremarkable bladder. There is no evidence of abdominal or pelvic adenopathy. Abdominal aorta is of normal diameter and no abnormality is seen involving major visceral branches.. Appendix is normal. No evidence diverticulitis or bowel obstruction. No significant abdominal wall hernia seen. Impression: The appearance is consistent with bibasilar pneumonia, right greater than left. No evidence of acute intra-abdominal process. ?XR CHEST 2V PA ? LATERAL CLINICAL HISTORY:? RLL pneumonia on ct, r/o additional consolidation TECHNIQUE:? COMPARISON:? CR PORTABLE CHEST ONE VIEW from 04/10/2015 FINDINGS: The heart is not enlarged.? Lungs are predominantly clear except for some hazy increased radiodensity in the right lung base.? CT examination today showed right basilar and left basilar consolidation.? A small right pleural effusion is present as noted on CT. IMPRESSION: Radiographically subtle changes of right basilar pneumonia.? These were more clearly seen on today's CT. CT CHEST PE CTA CLINICAL HISTORY: ? R sided chest pain, elevated d dimer, r/o PE. TECHNIQUE:? Imaging Protocol:? Axial CT angiography was performed with multi-slice acquisition and multi-planar and/or 3D reconstructions. CONTRAST MATERIAL:? Intravenous: Omnipaque 350 Contrast volume:structured data in ml COMPARISON:? CT CT ABDOMEN ? PELVIS W from 12/07/2021 FINDINGS: CT angiography of the chest was performed with intravenous infusion of 100 cc of Omnipaque 350. Note is again made of areas of right lung basilar consolidation and right pleural effusion as noted on abdominal CT. Tracheobronchial tree appears intact. There is pulmonary embolus occupying right lower lobe pulmonary arterial circulation.? The areas of right basilar consolidation therefore presumably represent an area of pulmonary infarction.? No other significant pulmonary embolus identified..? Thoracic aorta is of normal diameter, no thoracic aortic aneurysm or dissection, major branch vessels appear intact. No mediastinal or hilar adenopathy. Images obtained through the upper abdomen show unremarkable appearance of the visualized portions of the liver, spleen, pancreas, adrenals, and kidneys. IMPRESSION: Right lower lobe pulmonary embolus with presumed associated pulmonary infarct.. Lab Data Lab results reviewed: Yes I reviewed the patient's lab results. Labs: Laboratory Tests Range/Units 12/07/21 12/07/21 12/07/21 07:53 07:53 10:30 WBC (4.4-10.8) 10^3/uL 11.35 H RBC (4.36-5.78) 10^6/uL 4.71 Hgb (13.5-17.5) g/dL 13.9 Hct (40.0-50.0) % 42.7 MCV (80-95) fL 90.7 MCH (27.0-33.0) pg 29.5 MCHC (32.0-36.0) % 32.6 RDW (11.8-14.1) % 12.0 Plt Count (130-400) 10^3/uL 369 MPV (8.0-11.0) fL 9.5 Immature Gran % 0.4 Neutrophils % 67.1 Lymphocytes % 20.7 Monocytes % 8.4 Eosinophils % 2.5 Basophils % 0.9 Nucleated RBC % % 0 Absolute Neutrophils (1.2-6.7) 10^3/uL 7.62 H Absolute Lymphocytes (1.2-3.4) 10^3/uL 2.35 Absolute Monocytes (0.1-0.8) 10^3/uL 0.95 H Absolute Eosinophils (0.0-0.7) 10^3/uL 0.28 Absolute Basophils (0.0-0.2) 10^3/uL 0.10 PT (9.3-11.0) sec INR (0.9-1.1) APTT (21.0-27.5) sec D-Dimer (<500) ng/mlFEU 1384 H Sodium (136-145) mmol/L 140 Potassium (3.5-5.1) mmol/L 4.0 Chloride (98-107) mmol/L 102 Carbon Dioxide (21.0-32.0) mmol/L 28.7 Anion Gap (3-11) mmol/L 9.3 BUN (7-18) mg/dL 19 H Creatinine (0.70-1.30) mg/dL 1.0 Estimated GFR/1.73 m2 (mL/min/1.73m2) >= 60.00 Glucose (74-106) mg/dL 117 H Calcium (8.5-10.1) mg/dL 8.7 Total Bilirubin (0.2-1.0) mg/dL 0.3 AST (15-37) U/L 13 L ALT (16-63) U/L 22 Alkaline Phosphatase (46-116) U/L 86 Total Protein (6.4-8.2) g/dL 7.9 Albumin (3.4-5.0) g/dL 3.6 Lipase (73-393) U/L 30 COVID-19 Source Range/Units 12/07/21 12/07/21 11:55 11:55 WBC (4.4-10.8) 10^3/uL RBC (4.36-5.78) 10^6/uL Hgb (13.5-17.5) g/dL Hct (40.0-50.0) % MCV (80-95) fL MCH (27.0-33.0) pg MCHC (32.0-36.0) % RDW (11.8-14.1) % Plt Count (130-400) 10^3/uL MPV (8.0-11.0) fL Immature Gran % Neutrophils % Lymphocytes % Monocytes % Eosinophils % Basophils % Nucleated RBC % % Absolute Neutrophils (1.2-6.7) 10^3/uL Absolute Lymphocytes (1.2-3.4) 10^3/uL Absolute Monocytes (0.1-0.8) 10^3/uL Absolute Eosinophils (0.0-0.7) 10^3/uL Absolute Basophils (0.0-0.2) 10^3/uL PT (9.3-11.0) sec 11.2 H INR (0.9-1.1) 1.1 APTT (21.0-27.5) sec 26.1 D-Dimer (<500) ng/mlFEU Sodium (136-145) mmol/L Potassium (3.5-5.1) mmol/L Chloride (98-107) mmol/L Carbon Dioxide (21.0-32.0) mmol/L Anion Gap (3-11) mmol/L BUN (7-18) mg/dL Creatinine (0.70-1.30) mg/dL Estimated GFR/1.73 m2 (mL/min/1.73m2) Glucose (74-106) mg/dL Calcium (8.5-10.1) mg/dL Total Bilirubin (0.2-1.0) mg/dL AST (15-37) U/L ALT (16-63) U/L Alkaline Phosphatase (46-116) U/L Total Protein (6.4-8.2) g/dL Albumin (3.4-5.0) g/dL Lipase (73-393) U/L COVID-19 Source Nasal/Nares HPI General Mode of arrival: ambulatory. Date/Time Provider Initiated Documentation: 12/07/21 07:41. Limitations to Documentation: no limitations. Information obtained by: patient. HPI Narrative: Patient is a 26-year-old male who presents to the ED with a complaint of right upper quadrant abdominal pain and nausea for the past 10+ days. Patient states his pain started over 1 week ago and lasted for approximately 1 week and then resolved for a few days and then started again 2 days ago. He describes the pain as sharp, constant and worse with deep breath and movement. He states the pain radiates around from his right upper quadrant around the side of his abdomen to his right mid back. He states the pain is currently 9/10. He does admit to nausea and decreased appetite otherwise denies any fever, vomiting or urinary symptoms. He states he has chronic diarrhea at baseline and states this is no worse than usual. He states he had a bowel movement this morning that was semiformed . He denies any rectal bleeding. He states he has not taken any medication for his symptoms. He is unsure of any relation to food. 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 Related Data Home Medications Medication Instructions Recorded Confirmed amoxicillin 875 mg-potassium 1 tab PO BID 7 Days #14 tab 12/07/21 clavulanate 125 mg tablet Previous Rx's Medication Instructions Recorded amoxicillin 875 mg-potassium 1 tab PO BID 7 Days #14 tab 12/07/21 clavulanate 125 mg tablet Allergies Allergy/AdvReac Type Severity Reaction Status Date / Time No Known Allergies Allergy Unverified 12/07/21 07:43 General Stated Complaint: Abd Prob MJ: 3 Review of Systems All systems reviewed & are unremarkable except as noted in HPI and below Constitutional Constitutional: Reports as per HPI, Denies chills, Denies excessive sweating, Denies fatigue and Denies fever(s) Eyes Eyes: Denies blurry vision ENT Ears, Nose, Mouth, and Throat: Denies dizziness, Denies sore throat and Denies throat swelling Cardiovascular Cardiovascular: Denies chest pain and Denies dyspnea Respiratory Respiratory: Denies cough and Denies dyspnea Gastrointestinal Gastrointestinal: Reports abdominal pain, Reports diarrhea (chronic), Reports nausea and Denies vomiting Genitourinary Genitourinary: Denies hematuria and Denies dysuria Musculoskeletal Musculoskeletal: Denies back pain and Denies numbness Integumentary/Breasts Skin/Breast: Denies lesions and Denies rash Neurologic Neurologic: Denies behavioral changes, Denies confusion, Denies dizziness, Denies localized weakness and Denies numbness Psychiatric Psychiatric: Denies behavioral changes, Denies confusion and Denies depression Endocrine Endocrine: Denies excessive sweating and Denies fatigue Hematologic/Lymphatic Hematologic/Lymphatic: Denies easy bruising and Denies lymphadenopathy Allergic/Immunologic Allergic/Immunologic: Denies throat swelling PFSH All Active Problems (Updated 12/07/21 @ 12:36 by Salima Staton DO) Pulmonary embolism (Chronic) Pulmonary infarct (Acute) Community acquired pneumonia (Acute) Antithrombin deficiency (Acute) Patient desires (Acute) Medical History (Updated 12/07/21 @ 12:36 by Salima Staton DO) Antithrombin deficiency Chronic pain in right shoulder Depression Surgical History H/O wisdom tooth extraction S/p bilateral myringotomy with tube placement Family History Mother No problems noted. Father Essential hypertension Antithrombin III deficiency Stroke Grandfather Personal history of malignant neoplasm BREAST Grandfather Personal history of malignant neoplasm COLON Grandmother No problems noted. Grandmother No problems noted. Social History Smoking/Tobacco Use Status: Current every day Smoking risk assessment performed?: Yes Alcohol Intake: current Alcohol Intake frequency: a few times a week Alcohol type: hard liquor Drug use: Daily Substance use type: marijuana Do you feel safe at home: Yes Do you feel safe in your relationship?: Yes Exam Const General: cooperative, healthy appearing and uncomfortable Orientation: alert, awake and oriented x3 HENMT Head: normal to inspection Ears: hearing grossly normal bilaterally and external ears normal General nose exam: external nose normal Face and sinus: normal facial exam Mouth: oral mucosae normal Teeth and gingiva: dentition normal Eyes General: appearance normal, both eyes and all related structures Eyelids: eyelids normal Pupils: PERRL EOM: EOM intact bilaterally Neck Neck: normal visual inspection Lymphatic: no lymphadenopathy noted Chest Chest: normal inspection of the chest Resp Effort & Inspection: normal respiratory effort and able to speak in complete sentences Auscultation: clear to auscultation bilaterally Cardio Rate: regular rate Rhythm: regular rhythm GI Inspection: normal to inspection Palpation: soft, not firm, no guarding, no hepatosplenomegaly, no masses and tender in the epigastrum and in the RUQ Auscultation: hypoactive bowel sounds Skin General skin exam: no rashes or lesions noted Neuro General: patient alert and patient awake Cognition: normal cognition Speech: speech normal Motor: muscle tone normal throughout Sensory Exam: no sensory deficits noted Extrem General: normal to inspection, full ROM and capillary refill normal Psych Appearance: grossly normal Mental Status: mental status grossly normal Speech and Movement: speech and movement normal Affect: normal affect Thought Process: normal Course Vital Signs Vital signs: Vital Signs Temperature 98.1 F 04/14/22 07:40 Pulse 87 12/07/21 07:40 Respiratory Rate 16 12/07/21 07:40 Blood Pressure 116/57 L 12/07/21 07:40 Pulse Oximetry 100 12/07/21 07:40 Temperature 98.1 F 12/07/21 07:40 Temperature Source Temporal Artery Scan 12/07/21 07:40 Pulse 87 12/07/21 07:40 Respiratory Rate 16 12/07/21 07:40 Respiratory Effort Non-Labored 12/07/21 07:44 Blood Pressure 116/57 L 12/07/21 07:40 Blood Pressure Position Sitting 12/07/21 07:40 Pulse Oximetry 100 12/07/21 07:40 Oxygen Delivery Method Room Air 12/07/21 07:40 Oxygen Flow Rate 0 12/07/21 07:40 Pain Level 9 12/07/21 07:40 PAWSS Have you Been Recently Intoxicated or Drunk Within the Last 30 days?: No Have you Ever Experienced Previous Episodes of Alcohol Withdrawal?: No Have you ever Experienced Withdrawal Seizures?: No Have you ever Experienced Delirium Tremens(DT)s?: No Have you ever undergone Alcohol Rehabilitation Treatment (i.e, inpt ot outpatient treatment programs)?: No Have you ever Experienced Blackouts?: No Have you ever Combined Alcohol with other Downers within the last 90 days?: No Have you ever Combined Alcohol with any other Substance of Abuse during the last 90 days?: No Positive Blood Alcohol level on Presentation? [PCS.BAL]: No Evidence of Increased Autonomic Activity (i.e. HR>120, tremor, sweating, agitation, nausea)?: No Result: 0
[2021-12-07 08:23] LABS: Abs Immature Grans 0.04 10^3/uL (0.0-0.06); Absolute Eosinophil Count 0.28 10^3/uL (0.0-0.7); Absolute Lymphocyte Count 2.35 10^3/uL (1.2-3.4); Absolute Monocyte Count 0.95 10^3/uL (0.1-0.8); Basophils % 0.9; Eosinophils % 2.5; HCT 42.7 % (40.0-50.0); HGB 13.9 g/dL (13.5-17.5); Immature Grans % 0.4; Lymphocytes % 20.7; MCH 29.5 pg (27.0-33.0); MCHC 32.6 % (32.0-36.0); MCV 90.7 fL (80-95); MPV 9.5 fL (8.0-11.0); Monocytes % 8.4; Neutrophils % 67.1; Nucleated RBC 0 %; Platelet Count 369 10^3/uL (130-400); RBC 4.71 10^6/uL (4.36-5.78); RDW-SD 40.3 fL; WBC 11.35 10^3/uL (4.4-10.8)
[2021-12-07 08:24] LABS: Absolute Neutrophil Count 7.62 10^3/uL (1.2-6.7)
[2021-12-07] MEDS: Ondansetron 4 MG/2 ML VIAL IVP (08:40)
[2021-12-07] MEDS: Normal Saline 1,000 ML 1000 ML IV (08:40)
[2021-12-07] MEDS: Famotidine 20 MG/2 ML VIAL IVP (08:41)
[2021-12-07] MEDS: Normal Saline 50 ML (08:41)
[2021-12-07] MEDS: MORPHine 4 MG/ML SYR IVP (08:41)
[2021-12-07 08:42] LABS: ALT 22 U/L (16-63); AST 13 U/L (15-37); Albumin 3.6 g/dL (3.4-5.0); Alkaline Phosphatase 86 U/L (46-116); Anion Gap 9.3 mmol/L (3-11); BUN 19 mg/dL (7-18); Bilirubin, Total 0.3 mg/dL (0.2-1.0); CO2 28.7 mmol/L (21.0-32.0); Calcium 8.7 mg/dL (8.5-10.1); Chloride 102 mmol/L (98-107); Glucose 117 mg/dL (74-106); Sodium 140 mmol/L (136-145); Total Protein 7.9 g/dL (6.4-8.2)
[2021-12-07 08:51] LABS: Lipase 30 U/L (73-393)
--- NOTE | 2021-12-07 09:02 | DI.CT_ITS ---
Exam(s) CT ABDOMEN PELVIS W EXAM: CT ABDOMEN PELVIS W CLINICAL HISTORY: RU/RLQ pain,r/ogastritis/pancreatitis/appendicitis TECHNIQUE: COMPARISON: No exams were available for comparison FINDINGS: CT examination of the abdomen and pelvis was performed with bolus infusion of 100 cc of Omnipaque 350 . Note is made of areas of apparent consolidation in the right lower pulmonary lobe with some small are as of consolidation also present in the left lung base. There is a small right pleural effusion and a tiny quantity of sub diaphragmatic fluid is also present.. The liver appears normal with no evidence of a focal mass. Spleen is unremarkable in appearance.. Gallbladder and bile ducts are unremarkable. Pancreas is unremarkable in appearance. Adrenals appear normal bilaterally. Kidneys appear normal with no evidence of renal mass, hydronephrosis, or nephrolithiasis. Unremarkab le bladder. There is no evidence of abdominal or pelvic adenopathy. Abdominal aorta is of normal diameter and no abnormality is seen involving major visceral branches.. Appendix is normal. No evidence diverticulitis or bowel obstruction. No significant abdominal wall hernia seen. Impression: The appearance is consistent with bibasilar pneumonia, right greater than left. No evidence of acute intra-abdominal process. RADIATION DOSE DELIVERED: 735.38mGy.cm Total DLP 735.38mGy.cm Total DLP !Error CTDIvol DATA REPOSITORY: All CT scans at this facility are submitted to the National Radiology Data Registry (NRDR) Dose Index Registry (DIR) with the [employer] ([employer]). RADIATION OPTIMIZATION: All CT scans at this facility use at least one of these dose optimization te chniques: automated exposure control; mA and/or kV adjustment per patient size (includes targeted exa ms where dose is matched to clinical indication); or iterative reconstruction.
--- NOTE | 2021-12-07 09:45 | DI.RAD_ITS ---
Exam(s) XR CHEST 2V PA LATERAL EXAM: XR CHEST 2V PA LATERAL CLINICAL HISTORY: RLL pneumonia on ct, r/o additional consolidation TECHNIQUE: COMPARISON: CR PORTABLE CHEST ONE VIEW from 04/10/2015 FINDINGS: The heart is not enlarged. Lungs are predominantly clear except for some hazy increased radiodensity in the right lung base. CT examination today showed right basilar and left basilar consolidation. A small right pleural effusion is present as noted on CT. IMPRESSION: Radiographically subtle changes of right basilar pneumonia. These were more clearly seen on today's CT. RADIATION DOSE DELIVERED: Total DLP
[2021-12-07] MEDS: Omnipaque 350 MG/ML 100 ML BTL IV (09:47)
--- NOTE | 2021-12-07 10:13 | NUR.NOTE ---
pt states his pain is still 9/10 but nausea has decreased and does not feel like he needs the anti nausea that has been ordered for him. ABRAM
[2021-12-07] MEDS: Amoxicillin 875/Clav. 125 TAB PO ×2 (10:27→20:15)
[2021-12-07] MEDS: Ketorolac 30 MG/ML VIAL IVP ×2 (10:35→17:32)
[2021-12-07 11:12] LABS: D-Dimer 1384 ng/mlFEU (<500)
--- NOTE | 2021-12-07 11:15 | DI.CT_ITS ---
Exam(s) CT CHEST PE CTA EXAM: CT CHEST PE CTA CLINICAL HISTORY: R sided chest pain, elevated d dimer, r/o PE. TECHNIQUE: Imaging Protocol: Axial CT angiography was performed with multi-slice acquisition and mu lti-planar and/or 3D reconstructions. CONTRAST MATERIAL: Intravenous: Omnipaque 350 Contrast volume:structured data in ml COMPARISON: CT CT ABDOMEN PELVIS W from 12/07/2021 FINDINGS: CT angiography of the chest was performed with intravenous infusion of 100 cc of Omnipaque 350. Note is again made of areas of right lung basilar consolidation and right pleural effusion as noted o n abdominal CT. Tracheobronchial tree appears intact. There is pulmonary embolus occupying right lower lobe pulmonary arterial circulation. The areas of r ight basilar consolidation therefore presumably represent an area of pulmonary infarction. No other significant pulmonary embolus identified.. Thoracic aorta is of normal diameter, no thoracic aortic aneurysm or dissection, major branch vessels appear intact. No mediastinal or hilar adenopathy. Images obtained through the upper abdomen show unremarkable appearance of the visualized portions of the liver, spleen, pancreas, adrenals, and kidneys. IMPRESSION: Right lower lobe pulmonary embolus with presumed associated pulmonary infarct.. RADIATION DOSE DELIVERED: 405.75mGy.cm Total DLP 405.75mGy.cm Total DLP !Error CTDIvol DATA REPOSITORY: All CT scans at this facility are submitted to the National Radiology Data Registry (NRDR) Dose Index Registry (DIR) with the [employer] ([employer]). RADIATION OPTIMIZATION: All CT scans at this facility use at least one of these dose optimization te chniques: automated exposure control; mA and/or kV adjustment per patient size (includes targeted exa ms where dose is matched to clinical indication); or iterative reconstruction.
[2021-12-07 12:01] LABS: Source Nasal/Nares
[2021-12-07 12:16] LABS: INR 1.1 (0.9-1.1); PTT Activated 26.1 sec (21.0-27.5); Prothrombin Time 11.2 sec (9.3-11.0)
[2021-12-07] MEDS: Apixaban 5 MG TAB 10 MG PO ×2 (12:26→20:16)
[2021-12-07] MEDS: Normal Saline 1,000 ML 150 ML IV ×2 (12:30→20:25)
[2021-12-07 13:09] LABS: COVID-19 PCR Negative (Negative)
--- NOTE | 2021-12-07 13:14 | W.PM.HP.N ---
Date of service: 12/07/21 Time of Service: 13:14 Assessment and Plan Assessment and plan (1) Pulmonary embolism: Status: Chronic Assessment and plan: oxygenating well on room air, vitals stable started on eliquis no evideonce of right heart strain on CT scan, echo not available. US bilateral legs to r/o DVT (2) Community acquired pneumonia: Status: Acute Assessment and plan: respiratory status stable. covid pcr negative. started on augmentin, will continue for 5 day course. (3) Antithrombin deficiency: Status: Acute Assessment and plan: will be anticoagulated now. discussed with DR Lewis. History of Present Illness History of Present Illness Chief Complaint: abd pain Narrative: presents to ED for right sided upper abdominal pain, initially thought to be his gall bladder but after work up and imaging diagnosed with community acquired pneumonia and started on augmentin, he had been hemodynamically stable and was going to be discharged but then found to have an elevated ddimer and CT angio for chest obtained and showed PE. He was started on eliquis and his case discussed with hospitalist who accepts for observation admission. Review of Systems Constitutional Constitutional: Denies fever(s) ENT Ears, Nose, Mouth, and Throat: Denies vertigo and Denies dizziness Cardiovascular Cardiovascular: Denies chest pain, Denies leg edema, Denies lightheadedness, Denies palpitations and Reports dyspnea on exertion Respiratory Respiratory: Denies chest congestion, Reports cough, Reports pain on inspiration, Reports dyspnea on exertion and Denies wheezing Gastrointestinal Gastrointestinal: Reports abdominal pain Musculoskeletal Musculoskeletal: Denies back pain Neurologic Neurologic: Denies vertigo and Denies dizziness Endocrine Endocrine: Denies palpitations Allergic/Immunologic Allergic/Immunologic: Denies wheezing PFSH All Active Problems (Updated 12/07/21 @ 12:36 by Salima Staton DO) Pulmonary embolism (Chronic) Pulmonary infarct (Acute) Community acquired pneumonia (Acute) Antithrombin deficiency (Acute) Patient desires (Acute) Medical History (Updated 12/07/21 @ 12:36 by Salima Staton DO) Antithrombin deficiency Chronic pain in right shoulder Depression Surgical History H/O wisdom tooth extraction S/p bilateral myringotomy with tube placement Family History Mother No problems noted. Father Essential hypertension Antithrombin III deficiency Stroke Grandfather Personal history of malignant neoplasm BREAST Grandfather Personal history of malignant neoplasm COLON Grandmother No problems noted. Grandmother No problems noted. Social History Smoking/Tobacco Use Status: Current every day Smoking risk assessment performed?: Yes Alcohol Intake: current Alcohol Intake frequency: a few times a week Alcohol type: hard liquor Drug use: Daily Substance use type: marijuana Do you feel safe at home: Yes Do you feel safe in your relationship?: Yes Meds Allergies and Home Medications Allergies Allergy/AdvReac Type Severity Reaction Status Date / Time No Known Allergies Allergy Unverified 12/07/21 07:43 Home Medications Medication Instructions Recorded Confirmed Type amoxicillin 875 mg-potassium 1 tab PO BID #12 tab 12/08/21 Rx clavulanate 125 mg tablet apixaban 5 mg tablet (Eliquis) 10 mg PO BID #66 tab 12/08/21 Rx Exam Const General: cooperative and healthy appearing Orientation: alert, awake and oriented x3 HENMT Head: normal to inspection Face and sinus: normal facial exam Mouth: oral mucosae normal Eyes General: appearance normal, both eyes and all related structures Eyelids: eyelids normal Pupils: PERRL EOM: EOM intact bilaterally Neck Neck: normal visual inspection Chest Chest: normal inspection of the chest Resp Effort & Inspection: normal respiratory effort and able to speak in complete sentences Auscultation: clear to auscultation bilaterally Cardio Rate: regular rate Rhythm: regular rhythm GI Inspection: normal to inspection Palpation: soft and tender in the epigastrum and in the RUQ Skin General skin exam: no rashes or lesions noted Neuro General: patient alert and patient awake Cognition: normal cognition Speech: speech normal Extrem General: normal to inspection, full ROM, no pedal edema and no calf tenderness Psych Appearance: grossly normal Mental Status: mental status grossly normal Speech and Movement: speech and movement normal Mood: congruent mood Affect: normal affect Thought Process: normal Results Labs Result diagrams: 12/07/21 07:53 12/07/21 07:53 Labs: Laboratory Results - last 24 hr 12/07/21 12/07/21 12/07/21 07:53 07:53 10:30 WBC 11.35 H RBC 4.71 Hgb 13.9 Hct 42.7 MCV 90.7 MCH 29.5 MCHC 32.6 RDW 12.0 Plt Count 369 MPV 9.5 Immature Gran % 0.4 Neutrophils % 67.1 Lymphocytes % 20.7 Monocytes % 8.4 Eosinophils % 2.5 Basophils % 0.9 Nucleated RBC % 0 Absolute Neutrophils 7.62 H Absolute Lymphocytes 2.35 Absolute Monocytes 0.95 H Absolute Eosinophils 0.28 Absolute Basophils 0.10 PT INR APTT D-Dimer 1384 H Sodium 140 Potassium 4.0 Chloride 102 Carbon Dioxide 28.7 Anion Gap 9.3 BUN 19 H Creatinine 1.0 Estimated GFR/1.73 m2 >= 60.00 Glucose 117 H Calcium 8.7 Total Bilirubin 0.3 AST 13 L ALT 22 Alkaline Phosphatase 86 Total Protein 7.9 Albumin 3.6 Lipase 30 COVID-19 Source SARS-CoV-2 (PCR) 12/07/21 12/07/21 11:55 11:55 WBC RBC Hgb Hct MCV MCH MCHC RDW Plt Count MPV Immature Gran % Neutrophils % Lymphocytes % Monocytes % Eosinophils % Basophils % Nucleated RBC % Absolute Neutrophils Absolute Lymphocytes Absolute Monocytes Absolute Eosinophils Absolute Basophils PT 11.2 H INR 1.1 APTT 26.1 D-Dimer Sodium Potassium Chloride Carbon Dioxide Anion Gap BUN Creatinine Estimated GFR/1.73 m2 Glucose Calcium Total Bilirubin AST ALT Alkaline Phosphatase Total Protein Albumin Lipase COVID-19 Source Nasal/Nares SARS-CoV-2 (PCR) Negative Last Vital Signs Temp 36.7 C 12/07/21 10:11 Pulse 54 L 12/07/21 12:34 Resp 14 12/07/21 12:34 BP 112/65 12/07/21 12:34 Pulse Ox 100 12/07/21 12:34 PAWSS Have you Been Recently Intoxicated or Drunk Within the Last 30 days?: No Have you Ever Experienced Previous Episodes of Alcohol Withdrawal?: No Have you ever Experienced Withdrawal Seizures?: No Have you ever Experienced Delirium Tremens(DT)s?: No Have you ever undergone Alcohol Rehabilitation Treatment (i.e, inpt ot outpatient treatment programs)?: No Have you ever Experienced Blackouts?: No Have you ever Combined Alcohol with other Downers within the last 90 days?: No Have you ever Combined Alcohol with any other Substance of Abuse during the last 90 days?: No Positive Blood Alcohol level on Presentation? [PCS.BAL]: No Evidence of Increased Autonomic Activity (i.e. HR>120, tremor, sweating, agitation, nausea)?: No Result: 0
[2021-12-07] MEDS: Acetaminophen 325 MG TAB 650 MG PO (20:16)
[2021-12-07] MEDS: Melatonin 3 MG TAB 6 MG PO (21:50)
--- NOTE | 2021-12-08 | DI.US_ITS ---
Exam(s) US EXTREMITY VENOUS BI EXAM: US EXTREMITY VENOUS BI CLINICAL HISTORY: pulmonary embolism. TECHNIQUE: Bilateral lower extremity venous ultrasound performed using grayscale, color-flow, and sp ectral Doppler analysis. COMPARISON: No exams were available for comparison FINDINGS: The bilateral common femoral, femoral and popliteal veins demonstrate normal compressibility, augment ation, and color Doppler. The posterior tibial veins are patent. The saphenofemoral junctions are unr emarkable. There is no evidence of a Hernandez's cyst. The soft tissues are unremarkable. IMPRESSION: Right: Negative for DVT Left: Negative for DVT DATA REPOSITORY:
[2021-12-08] MEDS: Normal Saline 1,000 ML 150 ML IV ×2 (02:17→08:44)
[2021-12-08] MEDS: Acetaminophen 325 MG TAB 650 MG PO ×2 (08:09→11:41)
[2021-12-08] MEDS: Apixaban 5 MG TAB 10 MG PO (08:10)
[2021-12-08] MEDS: Amoxicillin 875/Clav. 125 TAB PO (08:10)
[2021-12-08 08:15] VITALS: BP 107/54; PULSE 84; RESP 16; TEMP 36.5; O2SAT 99
[2021-12-08] MEDS: traMADol 50 MG TAB PO (08:16)
--- NOTE | 2021-12-08 10:52 | W.PM.DS.N ---
Date of service: 12/08/21 Time of Service: 10:52 DS: Diagnosis Discharge Diagnosis (1) Pulmonary embolism: Status: Chronic (2) Community acquired pneumonia: Status: Acute (3) Antithrombin deficiency: Status: Acute Discharge Plan Disposition Patient Disposition: HOME Condition: Stable Discharge Details Reason For Visit: Pulmonary Embolism Admit Date/Time: 12/07/21 13:28 Admit Provider: Mukesh Lewis Attending Provider: Mukesh Lewis Primary Care Provider: None,None Hospital Course Hospital Course: This is a 26 year old male with history of antithrombin deficiency who presented to ED for right sided upper abdominal pain, initially thought to be his gall bladder but after work up and imaging diagnosed with community acquired pneumonia and started on augmentin, he had been hemodynamically stable and was going to be discharged but then found to have an elevated ddimer and CT angio for chest obtained and showed PE, no evidence of right heart strain.? He was started on eliquis and referred to med/surg under hospitalist for observation stay. overnight he remained hemodynamically stable. His pain managed and eating and drinking well. echo not available. but bilateral DVT study negative for clots. Will refer him to pulmonology for outpatient follow up. Smoking cessation discussed. ?discharge discussed with DR Lewis. Home Meds and New Rx's Prescriptions: New Eliquis 5 mg Tablet 10 mg PO BID Qty: 66 0RF Rx Instructions: take 10 mg twice daily for one week (12 more doses) then 5 mg twice daily amoxicillin-pot clavulanate 875-125 mg Tablet 1 tab PO BID Qty: 12 0RF Discharge Instructions Instructions: Pulmonary Embolism (DC), Community Acquired Pneumonia (DC), How to Stop Smoking (DC), Cigarette Smoking and Your Health (GEN) Additional Instructions: Stop smoking. please see resources provided. Stand Alone Forms: Nursing Discharge Form Referrals: Jesenia Dudley MD [ [facility] STAFF PHYSICIAN] - Arturo Maldonado NP [NURSE PRACTITIONER] - 12/29/21 10:30 am Activity:: Activity as Tolerated Equipment/Supplies:: No Equipment Needed Diet:: As Tolerated Discharge Orders Discharge Orders: Discharge Order (Routine); Ordered 12/08/21 Ordered By: Snow Spangler DS: Summary Time Spent with Patient providing and/or coordinating discharge services: Less than 30 minutes Status at Discharge Functional status at discharge: independent ambulation Overall status at discharge: patient is progressing back to baseline Mental Status: mental status grossly normal Speech and Movement: speech and movement normal Mood: congruent mood Affect: normal affect Exam Const General: cooperative and healthy appearing Orientation: alert, awake and oriented x3 HENMT Head: normal to inspection Face and sinus: normal facial exam Mouth: oral mucosae normal Eyes General: appearance normal, both eyes and all related structures Eyelids: eyelids normal Pupils: PERRL EOM: EOM intact bilaterally Neck Neck: normal visual inspection Chest Chest: normal inspection of the chest Resp Effort & Inspection: normal respiratory effort and able to speak in complete sentences Auscultation: clear to auscultation bilaterally Cardio Rate: regular rate Rhythm: regular rhythm GI Inspection: normal to inspection Palpation: soft and tender in the epigastrum and in the RUQ Skin General skin exam: no rashes or lesions noted Neuro General: patient alert and patient awake Cognition: normal cognition Speech: speech normal Extrem General: normal to inspection, full ROM, no pedal edema and no calf tenderness Psych Appearance: grossly normal Mental Status: mental status grossly normal Speech and Movement: speech and movement normal Mood: congruent mood Affect: normal affect Thought Process: normal DS: Data Vitals/I&O Vitals and I&O: Vital Signs Temperature 36.5 C 12/08/21 08:15 Temperature Source Tympanic 12/08/21 08:15 Pulse 84 12/08/21 08:15 Pulse Rhythm Regular 12/08/21 04:35 Respiratory Rate 16 12/08/21 08:15 Respiratory Effort 12/08/21 04:35 Respiratory Depth Normal 12/08/21 04:35 Respiratory Pattern Normal 12/08/21 04:35 Blood Pressure 107/54 L 12/08/21 08:15 Blood Pressure Mean 68 12/07/21 09:31 Blood Pressure Position Sitting 12/07/21 07:40 Pulse Oximetry 99 12/08/21 08:15 Oxygen Delivery Method Room Air 12/08/21 08:15 Oxygen Flow Rate 0 12/08/21 08:15 Pain Level 7 12/08/21 08:16 Intake & Output 12/07/21 12/07/21 12/08/21 11:59 23:59 11:59 Intake Total 1000 / 2360 1360 / 2360 1847.5 / 1847.5 Balance 1000 / 2360 1360 / 2360 1847.5 / 1847.5 Weight 86.183 kg 86.3 kg Intake: IV 1000 / 1999 999 / 1999 1847.5 / 1847.5 Oral 360 / 360 Other: Urine Appearance Clear Clear Comment Per patient he has been up and voiding Data Completed and Pending Labs on day of discharge: Labs from last 24 hours 12/08/21 12/07/21 12/07/21 Unknown 11:55 11:55 PT 11.2 H INR 1.1 APTT 26.1 D-Dimer Procalcitonin Pending COVID-19 Source Nasal/Nares SARS-CoV-2 (PCR) Negative 12/07/21 10:30 PT INR APTT D-Dimer 1384 H Procalcitonin COVID-19 Source SARS-CoV-2 (PCR) PFSH All Active Problems (Updated 12/07/21 @ 12:36 by Salima Staton DO) Pulmonary embolism (Chronic) Pulmonary infarct (Acute) Community acquired pneumonia (Acute) Antithrombin deficiency (Acute) Patient desires (Acute) Medical History (Updated 12/07/21 @ 12:36 by Salima Staton DO) Antithrombin deficiency Chronic pain in right shoulder Depression Surgical History H/O wisdom tooth extraction S/p bilateral myringotomy with tube placement Family History Mother No problems noted. Father Essential hypertension Antithrombin III deficiency Stroke Grandfather Personal history of malignant neoplasm BREAST Grandfather Personal history of malignant neoplasm COLON Grandmother No problems noted. Grandmother No problems noted. Social History Smoking/Tobacco Use Status: Current every day Smoking risk assessment performed?: Yes Alcohol Intake: current Alcohol Intake frequency: a few times a week Alcohol type: hard liquor Drug use: Daily Substance use type: marijuana Do you feel safe at home: Yes Do you feel safe in your relationship?: Yes
[2021-12-08 12:51] LABS: Procalcitonin < 0.1 ng/mL
== END 2021-12-08 14:26 | disposition home or self-care (01) ==
LOC: ER 13:38 → MS 14:04
PROVIDERS: Nurse Practitioner Acute Care; Admitting Provider Family Medicine; Emergency Provider Physician Assistant; Visit Provider Family Medicine
DX: I26.99 Other pulmonary embolism without acute cor pulmonale (principal); J18.9 Pneumonia, unspecified organism; D68.59 Other primary thrombophilia; Z20.822 Contact with and (suspected) exposure to COVID-19
CPT/HCPCS: 36415; 71275; 80053; 83690; 84145; 87635; 96361; 96374; 96375; 99285; 71046; 74177; 76705; 85025; 85379; 85610; 85730; 93970; 99217; 99219; G0378; J1885; J2270; J2405; J3490

== ENCOUNTER 2022-10-23 22:09 | Observation (INO) | payer MEDICAID, SELFPAY ==
[2022-10-23 22:13] VITALS: BP 130/62; PULSE 68; RESP 14; TEMP 35.9; O2SAT 99
--- NOTE | 2022-10-23 22:15 | RT.EKG_ITS ---
APPROVED REPORT Exam: Resting ECG Reason for Exam: chest pain Patient Location: E HR:64 bpm ECG Measurements Heart Rate 64 AXIS RI 116 P 40 QRSd 116 QRS 20 QT 415 T 30 QTc 427 Conclusion Sinus rhythm...normal P axis, V-rate 60- 99 Incomplete right bundle branch block...QRSd >112, terminal axis(90,270) Physician: no stemi, no [id number]
--- NOTE | 2022-10-23 22:30 | DI.CT_ITS ---
Exam(s) CT CHEST PE CTA EXAM: CT CHEST PE CTA CLINICAL HISTORY: sob, hx of PE, eval for clot. TECHNIQUE: Imaging Protocol: Axial CT angiography was performed with multi-slice acquisition and mu lti-planar and/or 3D reconstructions. CONTRAST MATERIAL: Intravenous: Omnipaque 350 contrast volume:99 mL COMPARISON: CT CT CHEST PE CTA from 12/07/2021 FINDINGS: The examination is limited due to patient motion artifact. Tracheobronchial tree: Patent where visualized. Pulmonary parenchyma: Mild atelectasis or scarring is seen in the right lung base. No focal consolid ating infiltrates are seen. No architectural distortion. Pulmonary Arteries: There is a peripheral hypodense filling defect in branches of the pulmonary arter y to the right lower lobe. This corresponds to the sites of the patient's previous pulmonary emboli in 12/07/2021. Pulmonary artery branches are otherwise patent. Mediastinum and Josey: No dominant adenopathy or fluid collection. The esophagus is unremarkable. Visualized thyroid gland: Unremarkable. Pleura: No effusion or pneumothorax. Heart: The heart is not dilated. No coronary artery calcifications are seen. No pericardial effusion. No evidence of right heart strain. RV to LV ratio is less than 1. Aorta: Thoracic aorta non-dilated. No evidence of dissection. Upper abdomen: Unremarkable. Soft tissues: Trace bilateral gynecomastia. Bones: Within normal limits for the patient's age. IMPRESSION: 1. Eccentric filling defects in branches of the pulmonary artery to the right lower lobe concerning f or nonocclusive emboli. These correspond to areas of previous thrombus. This is suspicious for barrel assembler henry thromboembolism. This may represent incomplete resorption of thrombi. 2. No new occlusive pulmonary artery filling defect. 3. No evidence of thoracic aortic aneurysm or dissection. RADIATION DOSE DELIVERED: Total DLP DATA REPOSITORY: All CT scans at this facility are submitted to the National Radiology Data Registry (NRDR) Dose Index Registry (DIR) with the [employer] ([employer]). RADIATION OPTIMIZATION: All CT scans at this facility use at least one of these dose optimization te chniques: automated exposure control; mA and/or kV adjustment per patient size (includes targeted exa ms where dose is matched to clinical indication); or iterative reconstruction.
[2022-10-23 22:41] VITALS: RESP 14
[2022-10-23] MEDS: Normal Saline 1,000 ML 1000 ML IV (22:50)
[2022-10-23] MEDS: Normal Saline - Diluent 50 ML VIAL IV ×2 (22:55→22:59)
[2022-10-23] MEDS: Omnipaque 350 MG/ML 100 ML BTL IJ (22:59)
[2022-10-23 23:01] LABS: Lactate 0.9 mmol/L (0.6-1.4)
[2022-10-23 23:01] LABS: Abs Immature Grans 0.03 10^3/uL (0.0-0.06); Absolute Basophil Count 0.07 10^3/uL (0.0-0.2); Absolute Eosinophil Count 0.18 10^3/uL (0.0-0.7); Absolute Monocyte Count 0.81 10^3/uL (0.1-0.8); Basophils % 0.6; Eosinophils % 1.6; HCT 41.8 % (40.0-50.0); HGB 13.9 g/dL (13.5-17.5); Immature Grans % 0.3; Lymphocytes % 36.4; MCH 29.4 pg (27.0-33.0); MCHC 33.3 % (32.0-36.0); MCV 88 fL (80-95); MPV 9.9 fL (8.0-11.0); Monocytes % 7.2; Neutrophils % 53.9; Platelet Count 270 10^3/uL (130-400); RBC 4.73 10^6/uL (4.36-5.78); RDW 12.7 % (11.8-14.1); RDW-SD 41.7 fL; WBC 11.25 10^3/uL (4.4-10.8)
[2022-10-23 23:04] LABS: Absolute Neutrophil Count 6.06 10^3/uL (1.2-6.7)
[2022-10-23 23:15] LABS: INR 1.1 (0.9-1.1); PTT Activated 28.8 sec (21.5-31.9); Prothrombin Time 11.6 sec (9.3-11.0)
[2022-10-23 23:19] LABS: COVID-19 PCR Negative (Negative); Influenza A PCR Negative (Negative); Influenza B PCR Negative (Negative); RSV PCR Negative (Negative)
[2022-10-23 23:25] LABS: Source Nasopharynx
[2022-10-23 23:25] LABS: ALT 25 U/L (16-63); AST 13 U/L (15-37); Albumin 3.9 g/dL (3.4-5.0); Alkaline Phosphatase 61 U/L (46-116); Anion Gap 8.5 mmol/L (3-11); BUN 18 mg/dL (7-18); Bilirubin, Total 0.3 mg/dL (0.2-1.0); CO2 28.5 mmol/L (21.0-32.0); CREATININE 1.1 mg/dL (0.70-1.30); Calcium 8.7 mg/dL (8.5-10.1); Chloride 105 mmol/L (98-107); Estimated GFR 93.19 (mL/min/1.73m2); Glucose 105 mg/dL (74-106); NT-proBNP 34 pg/mL (<300); Potassium 3.7 mmol/L (3.5-5.1); Sodium 142 mmol/L (136-145); Total Protein 7.3 g/dL (6.4-8.2); Troponin I < 50 ng/L (<or=60)
--- NOTE | 2022-10-23 23:43 | W.ED.GENAD ---
Discharge Plan Disposition Patient Disposition: Admit to [facility] Condition: Good Discharge Details Chief Complaint: Chest Pain Clinical Impression: Pulmonary embolism Primary Care Provider: None,None ED Provider: Home Costa Home Meds and New Rx's Prescriptions: No Action methylphenidate HCl [Ritalin] 5 mg tablet 5 mg PO 2XD Patient Comments: Take 1 tablet by mouth twice a day warfarin 5 mg tablet 5 mg PO DAILY Patient Comments: TAKE ONE TABLET BY MOUTH EVERY DAY OR DIRECTED Rx Instructions: Pt takes 10mg one day and 5 the next repeating doses in this fashion, 10/23/22 took 10mg Medical Decision Making 27-year-old male with a past medical history of Antithrombin deficiency, with a past medical history of pulmonary embolism, was on Eliquis but then transition to warfarin, presents today for evaluation of cough, chest pain, shortness of breath, and fatigue. He has also been slightly dizzy with intermittent hot flashes. Pain is described as 8 out of 10. Radiates to both sides of his chest. Patient states the symptoms have been present for the last few days. He has missed his last few days of Coumadin. Additionally his INR is usually run around 1-1.2 which is subtherapeutic. He denies any vomiting or diarrhea. He denies any recent long trips surgeries or procedures. No other complaints at this time. No other modifying factors. Of note his significant other is at bedside, and she did recently have COVID as well, but he has done some home testing and these have been negative. Physical exam demonstrates a nontoxic appearing male, vital signs are stable. EKG demonstrates no signs of significant right heart strain. No STEMI. Differential is concerning for PE, pneumonia or viral upper respiratory infection. We will gently rehydrate, evaluate for concerning etiologies, monitor closely and reassess. 12:20 AM Laboratory work-up has returned, minimal white count, mild lymphocytosis. Suspect mild viral component. Lactate normal, electrolytes normal, troponin normal, proBNP normal, CT shows evidence of nonocclusive segmental right lower lobe pulmonary artery hypoattenuation filling defect concerning for nonocclusive embolus. This is the location of his previous PE, and clearly shows notable incomplete resolution or new worsening component since his last imaging. Bedside echo was performed and shows no evidence of severe right heart strain. I did discuss with the patient and he states that he is unable financially to take Eliquis. Due to the note ability of the pulmonary embolism, and his subtherapeutic state on the Coumadin, we we will heparinize the patient, with plan for admission for care management consult, and management of his need for appropriate outpatient anticoagulation status. Did discuss the case with the hospitalist Dr. Yang, he agrees with the plan for admission. I have extensively reviewed the treatment plan with the patient. I have addressed all patient concerns at this time. I have also discussed the plan with the admitting physician and they agree with the current assessment and plan and have agreed to assume responsibility for the patient. All parties demonstrate verbal understanding and agreement with our assessment and plan at this time. The documentation in this chart was dictated using [employer] dictation software. Please excuse any dictation errors. FINDINGS: Pulmonary arteries: Pulmonary artery opacification is adequate. There is nonocclusive segmental right lower lobe pulmonary artery hypoattenuating filling defect (series 8, image 334) concerning for nonocclusive embolus. This corresponds to previous site of a occlusive embolus on comparison exam suspicious for chronic thromboembolism with incomplete resorption. There is also hypoattenuating appearance of distal subsegmental branches suspicious for additional incompletely resorbed thrombus. Aorta: No thoracic aortic aneurysm or dissection. Thyroid: No mass. Lungs: There is mild scarring within the posterior right lung base corresponding to previously suspected pulmonary infarct. No acute appearing pulmonary consolidation. No mass. Mild central peribronchial thickening, nonspecific finding. Pleural spaces: No pleural effusion. No pneumothorax. Heart: Heart is not enlarged. No pericardial effusion. Heart RV/LV ratio: RV/LV ratio 0.7. Within normal limits. Lymph nodes: No pathologically enlarged axillary, mediastinal, or hilar lymph nodes. Bones/joints: Unremarkable. No acute fracture. Soft tissues: Trace symmetric gynecomastia. IMPRESSION: 1. Nonocclusive segmental right lower lobe pulmonary artery hypoattenuating filling defect concerning for nonocclusive embolus. This corresponds to previous site of occlusive embolus on comparison exam suspicious for chronic thromboembolism with incomplete resorption but nonspecific. Few hypoattenuating appearing distal subsegmental branches suspicious for additional incomplete resorptive thrombus. 2. No new occlusive pulmonary artery filling defect. 3. Mild central peribronchial thickening. Could be seen in association with acute versus chronic small airways disease but nonspecific. Correlate clinically. 4. Additional nonacute findings as discussed. Thank you for allowing us to participate in the care of your patient. Dictated and Authenticated by: Maurilio Altamirano MD 10/23/2022 11:59 PM Eastern Time ([place] & [place]) HPI General Date/Time Provider Initiated Documentation: 10/23/22 22:37. HPI Narrative: 27-year-old male with a past medical history of Antithrombin deficiency, with a past medical history of pulmonary embolism, was on Eliquis but then transition to warfarin, presents today for evaluation of cough, chest pain, shortness of breath, and fatigue. He has also been slightly dizzy with intermittent hot flashes. Pain is described as 8 out of 10. Radiates to both sides of his chest. Patient states the symptoms have been present for the last few days. He has missed his last few days of Coumadin. Additionally his INR is usually run around 1-1.2 which is subtherapeutic. He denies any vomiting or diarrhea. He denies any recent long trips surgeries or procedures. No other complaints at this time. No other modifying factors. Of note his significant other is at bedside, and she did recently have COVID as well, but he has done some home testing and these have been negative. Related Data Home Medications Medication Instructions Recorded Confirmed methylphenidate HCl 5 mg tablet 5 mg PO 2XD 10/23/22 10/23/22 (Ritalin) warfarin 5 mg tablet 5 mg PO DAILY 10/23/22 10/23/22 Allergies Allergy/AdvReac Type Severity Reaction Status Date / Time No Known Allergies Allergy Unverified 10/23/22 22:44 General Stated Complaint: Chest Pain MJ: 3 Review of Systems All systems reviewed & are unremarkable except as noted in HPI and below PFSH All Active Problems (Updated 10/24/22 @ 00:24 by Home Costa DO) Pulmonary embolism (Chronic) Pulmonary embolism (Chronic) Pulmonary infarct (Acute) Community acquired pneumonia (Acute) Antithrombin deficiency (Acute) Patient desires (Acute) Medical History (Updated 10/24/22 @ 00:24 by Home Costa DO) Antithrombin deficiency Chronic pain in right shoulder Depression Surgical History H/O wisdom tooth extraction S/p bilateral myringotomy with tube placement Family History Mother No problems noted. Father Essential hypertension Antithrombin III deficiency Stroke Grandfather Personal history of malignant neoplasm BREAST Grandfather Personal history of malignant neoplasm COLON Grandmother No problems noted. Grandmother No problems noted. Social History Smoking/Tobacco Use Status: Current every day Smoking risk assessment performed?: Yes Alcohol Intake: current Alcohol Intake frequency: a few times a week Alcohol type: hard liquor Drug use: Daily Substance use type: marijuana Do you feel safe at home: Yes Do you feel safe in your relationship?: Yes Exam Narrative Exam Narrative: 1.Const: Well-nourished, Well-developed, appearing stated age 2.Eyes: PERRL, no conjunctival injection, and symmetrical lids. 3.ENT: Atraumatic external nose and ears. Moist MM. Neck: Symmetric, trachea midline, No thyromegaly. 4.CVS: +S1/S2, No murmurs or gallops. Peripheral pulses 2+ and equal in all extremities. Brisk capillary refill in all extremities. 5.RESP: Unlabored respiratory effort. Clear to auscultation bilaterally. No wheezes rales or rhonchi 6.GI: Soft, Nontender/Nondistended, No hepatosplenomegaly. No guarding or rebound. 7.MSK: Normocephalic/Atraumatic, Extremities w/o deformity or ttp No cyanosis or clubbing, Normal movement of all extremities, no pitting edema. 8.Skin: Warm, Dry. No rashes or lesions. 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 Sensation grossly intact, no focal neurologic deficits. 10.Psych: (AAO) x3. Appropriate mood and affect Course Vital Signs Vital signs: Vital Signs Temperature 35.9 C L 10/23/22 22:13 Pulse 68 10/23/22 22:13 Respiratory Rate 14 10/23/22 22:13 Blood Pressure 130/62 10/23/22 22:13 Pulse Oximetry 99 10/23/22 22:13 Temperature 35.9 C L 10/23/22 22:13 Temperature Source Tympanic 10/23/22 22:13 Pulse 68 10/23/22 22:13 Respiratory Rate 14 10/23/22 22:41 Respiratory Effort Normal 10/23/22 22:41 Respiratory Depth Normal 10/23/22 22:41 Respiratory Pattern Normal 10/23/22 22:41 Blood Pressure 130/62 10/23/22 22:13 Blood Pressure Position Sitting 10/23/22 22:13 Pulse Oximetry 99 10/23/22 22:13 Oxygen Delivery Method Room Air 10/23/22 22:13 Oxygen Flow Rate 0 10/23/22 22:13 Pain Level 8 10/23/22 22:13 Comment chest 10/23/22 22:13 Lab/Test Results Lab/Test Results: Laboratory Tests Range/Units 10/23/22 10/23/22 10/23/22 22:26 22:40 22:40 WBC (4.4-10.8) 10^3/uL 11.25 H RBC (4.36-5.78) 10^6/uL 4.73 Hgb (13.5-17.5) g/dL 13.9 Hct (40.0-50.0) % 41.8 MCV (80-95) fL 88 MCH (27.0-33.0) pg 29.4 MCHC (32.0-36.0) % 33.3 RDW (11.8-14.1) % 12.7 Plt Count (130-400) 10^3/uL 270 MPV (8.0-11.0) fL 9.9 Immature Gran % 0.3 Neutrophils % 53.9 Lymphocytes % 36.4 Monocytes % 7.2 Eosinophils % 1.6 Basophils % 0.6 Nucleated RBC % (0.0-0.3) % 0.0 Absolute Neutrophils (1.2-6.7) 10^3/uL 6.06 Absolute Lymphocytes (1.2-3.4) 10^3/uL 4.10 H Absolute Monocytes (0.1-0.8) 10^3/uL 0.81 H Absolute Eosinophils (0.0-0.7) 10^3/uL 0.18 Absolute Basophils (0.0-0.2) 10^3/uL 0.07 PT (9.3-11.0) sec INR (0.9-1.1) APTT (21.5-31.9) sec VBG Lactate (0.6-1.4) mmol/L Sodium (136-145) mmol/L 142 Potassium (3.5-5.1) mmol/L 3.7 Chloride (98-107) mmol/L 105 Carbon Dioxide (21.0-32.0) mmol/L 28.5 Anion Gap (3-11) mmol/L 8.5 BUN (7-18) mg/dL 18 Creatinine (0.70-1.30) mg/dL 1.1 Est GFR (CKD-EPI 2020) (mL/min/1.73m2) 93.19 Glucose (74-106) mg/dL 105 Calcium (8.5-10.1) mg/dL 8.7 Total Bilirubin (0.2-1.0) mg/dL 0.3 AST (15-37) U/L 13 L ALT (16-63) U/L 25 Alkaline Phosphatase (46-116) U/L 61 Troponin I (<or=60) ng/L < 50 NT-Pro-B Natriuret Pep (<300) pg/mL 34 Total Protein (6.4-8.2) g/dL 7.3 Albumin (3.4-5.0) g/dL 3.9 COVID-19 Source Nasopharynx SARS-CoV-2 (PCR) (Negative) Negative Influenza Type A (PCR) (Negative) Negative Influenza Type B (PCR) (Negative) Negative RSV (PCR) (Negative) Negative Range/Units 10/23/22 10/23/22 22:40 22:57 WBC (4.4-10.8) 10^3/uL RBC (4.36-5.78) 10^6/uL Hgb (13.5-17.5) g/dL Hct (40.0-50.0) % MCV (80-95) fL MCH (27.0-33.0) pg MCHC (32.0-36.0) % RDW (11.8-14.1) % Plt Count (130-400) 10^3/uL MPV (8.0-11.0) fL Immature Gran % Neutrophils % Lymphocytes % Monocytes % Eosinophils % Basophils % Nucleated RBC % (0.0-0.3) % Absolute Neutrophils (1.2-6.7) 10^3/uL Absolute Lymphocytes (1.2-3.4) 10^3/uL Absolute Monocytes (0.1-0.8) 10^3/uL Absolute Eosinophils (0.0-0.7) 10^3/uL Absolute Basophils (0.0-0.2) 10^3/uL PT (9.3-11.0) sec 11.6 H INR (0.9-1.1) 1.1 APTT (21.5-31.9) sec 28.8 VBG Lactate (0.6-1.4) mmol/L 0.9 Sodium (136-145) mmol/L Potassium (3.5-5.1) mmol/L Chloride (98-107) mmol/L Carbon Dioxide (21.0-32.0) mmol/L Anion Gap (3-11) mmol/L BUN (7-18) mg/dL Creatinine (0.70-1.30) mg/dL Est GFR (CKD-EPI 2020) (mL/min/1.73m2) Glucose (74-106) mg/dL Calcium (8.5-10.1) mg/dL Total Bilirubin (0.2-1.0) mg/dL AST (15-37) U/L ALT (16-63) U/L Alkaline Phosphatase (46-116) U/L Troponin I (<or=60) ng/L NT-Pro-B Natriuret Pep (<300) pg/mL Total Protein (6.4-8.2) g/dL Albumin (3.4-5.0) g/dL COVID-19 Source SARS-CoV-2 (PCR) (Negative) Influenza Type A (PCR) (Negative) Influenza Type B (PCR) (Negative) RSV (PCR) (Negative) POCUS Exam (ED) Limited Cardiac Exam DATE OF EXAM: 10/24/22 TIME OF EXAM: 00:22 PROVIDER THAT PERFORMED THE STUDY: Home Costa IS THIS A REPEAT EXAM DURING THIS ENCOUNTER: no REASON FOR EXAM: Chest pain VISUALIZED STRUCTURES: Left atrium, Left ventricle, Right ventricle and Interventricular septum VIEW OBTAINED: Parasternal long-axis and Parasternal short-axis PERTINENT FINDINGS/IMPRESSION: No apparent abnormalities Exam complete
[2022-10-24] VITALS (8 sets, daily range): BP systolic 103–120; BP diastolic 53–72; PULSE 42–59; RESP 15–17; TEMP 35.5–36.9; O2SAT 96–100
--- NOTE | 2022-10-24 | DI.VRAD_ITS ---
Addendum created by Maurilio Altamirano MD on 10/24/2022 12:06:01 AM EST: THIS REPORT CONTAINS FINDINGS THAT MAY BE CRITICAL TO PATIENT CARE. The findings were verbally communicated via telephone conference with EDVIN VELA at 12:05 AM EST on 10/24/2022. The findings were acknowledged and understood. Initial report created on 10/23/2022 11:59:03 PM EST: PROCEDURE INFORMATION: Exam: CTA Chest With Contrast Exam date and time: 10/23/2022 11:16 PM Age: 27 years old Clinical indication: Shortness of breath; Patient HX: SOB, HX of pe, eval for clot; Additional info: HX antithrombin deficiency TECHNIQUE: Imaging protocol: Computed tomographic angiography of the chest with contrast. 3D rendering (Not supervised by radiologist): MIP and/or 3D reconstructed images were created by the technologist. Radiation optimization: All CT scans at this facility use at least one of these dose optimization techniques: automated exposure control; mA and/or kV adjustment per patient size (includes targeted exams where dose is matched to clinical indication); or iterative reconstruction. Contrast material: OMNIPAQUE 350; Contrast volume: 99 ml; Contrast route: IV; COMPARISON: CT CHEST PE CTA 12/07/2021 11:24 AM FINDINGS: Pulmonary arteries: Pulmonary artery opacification is adequate. There is nonocclusive segmental right lower lobe pulmonary artery hypoattenuating filling defect (series 8, image 334) concerning for nonocclusive embolus. This corresponds to previous site of a occlusive embolus on comparison exam suspicious for chronic thromboembolism with incomplete resorption. There is also hypoattenuating appearance of distal subsegmental branches suspicious for additional incompletely resorbed thrombus. Aorta: No thoracic aortic aneurysm or dissection. Thyroid: No mass. Lungs: There is mild scarring within the posterior right lung base corresponding to previously suspected pulmonary infarct. No acute appearing pulmonary consolidation. No mass. Mild central peribronchial thickening, nonspecific finding. Pleural spaces: No pleural effusion. No pneumothorax. Heart: Heart is not enlarged. No pericardial effusion. Heart RV/LV ratio: RV/LV ratio 0.7. Within normal limits. Lymph nodes: No pathologically enlarged axillary, mediastinal, or hilar lymph nodes. Bones/joints: Unremarkable. No acute fracture. Soft tissues: Trace symmetric gynecomastia. IMPRESSION: 1. Nonocclusive segmental right lower lobe pulmonary artery hypoattenuating filling defect concerning for nonocclusive embolus. This corresponds to previous site of occlusive embolus on comparison exam suspicious for chronic thromboembolism with incomplete resorption but nonspecific. Few hypoattenuating appearing distal subsegmental branches suspicious for additional incomplete resorptive thrombus. 2. No new occlusive pulmonary artery filling defect. 3. Mild central peribronchial thickening. Could be seen in association with acute versus chronic small airways disease but nonspecific. Correlate clinically. 4. Additional nonacute findings as discussed. Dictated and Authenticated by: Maurilio Altamirano MD. Ordering:SURYA Bhat MD
--- NOTE | 2022-10-24 03:11 | W.PM.HP.N ---
Date of service: 10/24/22 Time of Service: 03:13 Assessment and Plan Assessment and plan (1) Pulmonary embolism: Start date: 10/23/22 Status: Chronic Assessment and plan: Patient CT scan showed PE in the same area which was nonocclusive being occlusive with infarct in November 2021. This PE may not be acute but persistent and symptoms are returning therefore we will be more aggressive in treatment with heparin infusion and Coumadin continued for now but patient should transition to Eliquis which may be safer and more therapeutic with his compliance and cost issues. manager field services should be involved. (2) RUQ abdominal pain: Start date: 10/23/22 Status: Acute Assessment and plan: Patient has similar right upper quadrant abdominal pain with his last presentation with acute PE but appears to have a Gastelum sign and is also tender in the right lower abdomen. I will order limited ultrasound of the abdomen and should consider CT of the abdomen to evaluate the appendix if point tenderness of right lower quadrant persists with reevaluation. He still has his appendix and gallbladder. 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 (4) Depression: Assessment and plan: Patient should follow-up with PCP on treatment options. He is having problems coping with his financial stress and now with new family. (5) ADHD (attention deficit hyperactivity disorder): Status: Chronic Assessment and plan: Review medication list and if on treatment continue the same and if not follow-up PCP for evaluation and possible psychiatric referral. History of Present Illness History of Present Illness Chief Complaint: Chest pain with shortness of breath and fatigue Narrative: This is a 27-year-old gentleman who had an acute right pulmonary embolus and November 2021 who was initiated on Eliquis but could not afford the medication and converted to warfarin with his INR never being therapeutic during this last year. He more recently was adjusting his medicines having lost his PCP who never returned his call and initiate with a new PCP at [facility]. He has not attempted to have Eliquis given to him free on a program and he has minimal income with his fianc?e being an PRICING STRATEGIST now also decreasing work because of and being close to having . At one point they were both making too much money for help but not enough money to afford the basics in life. He also has complaint of abdominal pain which he complained of last year in November when he presented with his PE. CTA of the chest this ED visit revealed a PE in the same area with no mention of infarct which was present last year and no mention of pneumonic process. The patient was initiated on IV heparin and continued on Coumadin for now but plan should be made for having home acquire Saray within affordable plan. He has not plugged into the director of social media marketing and health system to assist him with this problem. His PE is secondary to being at risk with Antithrombin III deficiency. The patient is a full code. He also has ADD and is on stimulant therapy. Review of Systems Narrative: 13 point review of systems otherwise unrevealing or stable. 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 PFSH All Active Problems (Updated 10/24/22 @ 03:34 by Myles Yang) Antithrombin III deficiency (Chronic) RUQ abdominal pain (Acute) ADHD (attention deficit hyperactivity disorder) (Chronic) Pulmonary embolism (Chronic) Pulmonary embolism (Chronic) Pulmonary infarct (Acute) Community acquired pneumonia (Acute) Antithrombin deficiency (Acute) Patient desires (Acute) Medical History (Updated 10/24/22 @ 03:34 by Myles Yang) Chronic pain in right shoulder Depression Surgical History H/O wisdom tooth extraction S/p bilateral myringotomy with tube placement Family History Mother No problems noted. Father Essential hypertension Antithrombin III deficiency Stroke Grandfather Personal history of malignant neoplasm BREAST Grandfather Personal history of malignant neoplasm COLON Grandmother No problems noted. Grandmother No problems noted. Social History Smoking/Tobacco Use Status: Current every day Smoking risk assessment performed?: Yes Alcohol Intake: current Alcohol Intake frequency: a few times a week Alcohol type: hard liquor Drug use: Daily Substance use type: marijuana Do you feel safe at home: Yes Do you feel safe in your relationship?: Yes Meds Allergies and Home Medications Allergies Allergy/AdvReac Type Severity Reaction Status Date / Time No Known Allergies Allergy Unverified 10/23/22 22:44 Home Medications Medication Instructions Recorded Confirmed Type methylphenidate HCl 5 mg tablet 5 mg PO 2XD 10/23/22 10/23/22 History (Ritalin) warfarin 5 mg tablet 5 mg PO DAILY 10/23/22 10/23/22 History Exam Narrative Exam Narrative: General: Patient appears appropriate for age, moderate distress from his discomfort but alert and oriented x3. He is not tachypneic but appears in pain during exam of the abdomen. HEENT: Normocephalic, eyes with pupils equal and reactive to light symmetrically, extraocular movement tact and sclera anicteric. Oropharynx with moist mucosa and fair dentition. Neck: Supple without JVD. Back: Stooped posture without CVA tenderness. Lungs: Fair aeration clear to auscultation and percussion with no friction rubs or rales. No rhonchi and normal I:E ratio. Chest: Symmetrical movement and no tenderness to palpation. Heart: Bradycardic rate with normal rhythm, no murmurs or gallops appreciated. No rubs. Abdomen: Tender to palpation of the right upper quadrant and right lower lower quadrant but soft with minimal guarding and no rebound. Technically positive Gastelum sign. Bowel sounds positive all quadrants. No palpable hepatosplenomegaly. Genitalia/rectal: Exam deferred. Extremities: Without clubbing, cyanosis or pitting edema. Negative Homans' sign bilaterally. Peripheral pulses intact. Skin: Normal color, moist and warm with diffuse acne especially over the back but also over the face. Neuro: Cranial nerves II through XII grossly intact, no focalizing motor deficits. DTRs physiologic and symmetrical. No tremor. Psych: Flattened affect with depressed mood and some decreased attention. No abnormal thought processes. Remote and recent memory grossly intact. Results Imaging Imaging Studies: Exam: CTA Chest With Contrast Exam date and time: 10/23/2022 11:16 PM Age: 27 years old Clinical indication: Shortness of breath; Patient HX: SOB, HX of pe, eval for clot; Additional info: HX antithrombin deficiency TECHNIQUE: Imaging protocol: Computed tomographic angiography of the chest with contrast. 3D rendering (Not supervised by radiologist): MIP and/or 3D reconstructed images were created by the technologist. Radiation optimization: All CT scans at this facility use at least one of these dose optimization techniques: automated exposure control; mA and/or kV adjustment per patient size (includes targeted exams where dose is matched to clinical indication); or iterative reconstruction. Contrast material: OMNIPAQUE 350; Contrast volume: 99 ml; Contrast route: IV;? COMPARISON: CT CHEST PE CTA 12/07/2021 11:24 AM FINDINGS: Pulmonary arteries: Pulmonary artery opacification is adequate. There is nonocclusive segmental right lower lobe pulmonary artery hypoattenuating filling defect (series 8, image 334) concerning for nonocclusive embolus. This corresponds to previous site of a occlusive embolus on comparison exam suspicious for chronic thromboembolism with incomplete resorption. There is also hypoattenuating appearance of distal subsegmental branches suspicious for additional incompletely resorbed thrombus. Aorta: No thoracic aortic aneurysm or dissection. Thyroid: No mass. Lungs: There is mild scarring within the posterior right lung base corresponding to previously suspected pulmonary infarct. No acute appearing pulmonary consolidation. No mass. Mild central peribronchial thickening, nonspecific finding. Pleural spaces: No pleural effusion. No pneumothorax. Heart: Heart is not enlarged. No pericardial effusion. Heart RV/LV ratio: RV/LV ratio 0.7. Within normal limits. Lymph nodes: No pathologically enlarged axillary, mediastinal, or hilar lymph nodes. Bones/joints: Unremarkable. No acute fracture. Soft tissues: Trace symmetric gynecomastia. IMPRESSION: 1. ? Nonocclusive segmental right lower lobe pulmonary artery hypoattenuating filling defect concerning for nonocclusive embolus. This corresponds to previous site of occlusive embolus on comparison exam suspicious for chronic thromboembolism with incomplete resorption but nonspecific. Few hypoattenuating appearing distal subsegmental branches suspicious for additional incomplete resorptive thrombus. 2. ? No new occlusive pulmonary artery filling defect. 3. ? Mild central peribronchial thickening. Could be seen in association with acute versus chronic small airways disease but nonspecific. Correlate clinically. 4. ? Additional nonacute findings as discussed. Labs 10/23/22 22:40 10/23/22 22:40 Labs: Laboratory Results - last 24 hr 10/23/22 10/23/22 10/23/22 22:26 22:40 22:40 WBC 11.25 H RBC 4.73 Hgb 13.9 Hct 41.8 MCV 88 MCH 29.4 MCHC 33.3 RDW 12.7 Plt Count 270 MPV 9.9 Immature Gran % 0.3 Neutrophils % 53.9 Lymphocytes % 36.4 Monocytes % 7.2 Eosinophils % 1.6 Basophils % 0.6 Nucleated RBC % 0.0 Absolute Neutrophils 6.06 Absolute Lymphocytes 4.10 H Absolute Monocytes 0.81 H Absolute Eosinophils 0.18 Absolute Basophils 0.07 PT INR APTT VBG Lactate Sodium 142 Potassium 3.7 Chloride 105 Carbon Dioxide 28.5 Anion Gap 8.5 BUN 18 Creatinine 1.1 Est GFR (CKD-EPI 2020) 93.19 Glucose 105 Calcium 8.7 Total Bilirubin 0.3 AST 13 L ALT 25 Alkaline Phosphatase 61 Troponin I < 50 NT-Pro-B Natriuret Pep 34 Total Protein 7.3 Albumin 3.9 COVID-19 Source Nasopharynx SARS-CoV-2 (PCR) Negative Influenza Type A (PCR) Negative Influenza Type B (PCR) Negative RSV (PCR) Negative 10/23/22 10/23/22 22:40 22:57 WBC RBC Hgb Hct MCV MCH MCHC RDW Plt Count MPV Immature Gran % Neutrophils % Lymphocytes % Monocytes % Eosinophils % Basophils % Nucleated RBC % Absolute Neutrophils Absolute Lymphocytes Absolute Monocytes Absolute Eosinophils Absolute Basophils PT 11.6 H INR 1.1 APTT 28.8 VBG Lactate 0.9 Sodium Potassium Chloride Carbon Dioxide Anion Gap BUN Creatinine Est GFR (CKD-EPI 2020) Glucose Calcium Total Bilirubin AST ALT Alkaline Phosphatase Troponin I NT-Pro-B Natriuret Pep Total Protein Albumin COVID-19 Source SARS-CoV-2 (PCR) Influenza Type A (PCR) Influenza Type B (PCR) RSV (PCR) Last Vital Signs Temp 35.9 C L 10/23/22 22:13 Pulse 59 L 10/24/22 00:21 Resp 15 10/24/22 00:21 BP 107/53 L 10/24/22 00:21 Pulse Ox 97 10/24/22 00:21 Time Spent Time spent with Patient: >75 minutes Time was spent: preparing to see the patient(eg.review tests), obtaining and/or reviewing separately otained hiistory, ordering medications,tests, procedures, referring, communicating with other health critical care physician assistant, indepentently interpreting results, counseling the patient and care coordination
[2022-10-24] MEDS: Normal Saline 1,000 ML 125 ML IV (04:04)
[2022-10-24 06:45] LABS: HGB 12.7 g/dL (13.5-17.5); MCH 28.9 pg (27.0-33.0); MCHC 32.6 % (32.0-36.0); MCV 89 fL (80-95); MPV 10.1 fL (8.0-11.0); Platelet Count 238 10^3/uL (130-400); RBC 4.39 10^6/uL (4.36-5.78); RDW-SD 42.5 fL; WBC 9.17 10^3/uL (4.4-10.8)
[2022-10-24 06:59] LABS: Magnesium 1.9 mg/dL (1.8-2.4)
--- NOTE | 2022-10-24 07:00 | DI.US_ITS ---
Exam(s) US ABDOMEN LIMITED EXAM: US ABDOMEN LIMITED CLINICAL HISTORY: RUQ/RLQ Abdominal Pain, positive Gastelum's sign TECHNIQUE: Ultrasound abdomen performed using standard protocol. COMPARISON: US US ABDOMEN LIMITED from 12/07/[address] CHEST PE CTA from 10/23/2022 FINDINGS: PANCREAS: Normal where visualized. LIVER: Normal. Hepatopedal flow in the Portal Vein. The liver measures in 19.5 cm length. GALLBLADDER: No evidence of cholelithiasis. No evidence of wall thickening. No pericholecystic fluid identified. BILIARY SYSTEM: Common bile duct measures < 7 mm. No intrahepatic biliary ductal dilation. GASTELUM'S SIGN: Negative. RIGHT KIDNEY: Kidney is normal in size. No evidence of renal calculi. No evidence of hydronephrosis. No renal mass or cyst identified. ASCITES: None seen. The right lower quadrant was evaluated. The appendix was not visualized. No sonographic evidence of an acute appendicitis is seen. IMPRESSION: 1. Hepatomegaly. 2. No evidence of cholelithiasis or biliary ductal dilatation. 3. No sonographic evidence of a appendicitis. DATA REPOSITORY:
[2022-10-24 07:04] LABS: ALT 19 U/L (16-63); AST 13 U/L (15-37); Albumin 3.3 g/dL (3.4-5.0); Alkaline Phosphatase 55 U/L (46-116); Anion Gap 7.3 mmol/L (3-11); BUN 15 mg/dL (7-18); Bilirubin, Total 0.3 mg/dL (0.2-1.0); CO2 25.7 mmol/L (21.0-32.0); CREATININE 0.9 mg/dL (0.70-1.30); Calcium 8.3 mg/dL (8.5-10.1); Chloride 109 mmol/L (98-107); Estimated GFR 118.57 (mL/min/1.73m2); Glucose 103 mg/dL (74-106); INR 1.1 (0.9-1.1); PTT Activated 62.6 sec (21.5-31.9); Potassium 3.9 mmol/L (3.5-5.1); Prothrombin Time 11.4 sec (9.3-11.0); Sodium 142 mmol/L (136-145); Total Protein 6.1 g/dL (6.4-8.2)
[2022-10-24 07:06] LABS: Troponin I < 50 ng/L (<or=60)
--- NOTE | 2022-10-24 09:33 | PDOC.CMIN ---
- If Service Date Differs Date of service: 10/24/22 Time of Service: 09:33 Care Management Initial Assess REASON FOR HOSPITALIZATION:: PE PAST MEDICAL HISTORY/PAST SURGICAL HISTORY:: All Active Problems (Updated 10/24/22 @ 03:34 by Myles Yang). Antithrombin III deficiency (Chronic). RUQ abdominal pain (Acute). ADHD (attention deficit hyperactivity disorder) (Chronic). Pulmonary embolism (Chronic). Pulmonary embolism (Chronic). Pulmonary infarct (Acute). Community acquired pneumonia (Acute). Antithrombin deficiency (Acute). Patient desires (Acute). Medical History (Updated 10/24/22 @ 03:34 by Myles Yang). Chronic pain in right shoulder. Depression. Surgical History . H/O wisdom tooth extraction. S/p bilateral myringotomy with tube placement PREVIOUS FUNCTIONAL STATUS/SOCIAL/FAMILY SUPPORTS:: Michael lives in [place] with his Brenda and they are expecting their first child this month. He is currently between jobs. He has been working for [employer] in [place] for the past 5 years but will be starting at [employer] next week. He does not currently have insurance but will with his new job. Michael is independent at baseline and dors not receive any community services. CURRENT FUNCTIONAL STATUS:: Michael was sitting up in bed when CM met with him. He had been out of his room most of the morning for testing. Michael was polite and courteous and agreeable to conversation. He informed CM that financially he and Olivier have been having a hard time. He has worked very little since [place] and Olivier has had to reduce her hours because of the . Michael talked a lot about his challenges with insurance. One of the reasons he changed jobs was in order to have benefits, including healthcare insurance. He was diagnosed with a PE last year and prescribed Eliquis, however he could not afford it. He has a new PCP, Lester Rico at [facility], and has been prescribed and is taking Warfarin now. He assured CM that he has been having his blood drawn every week as well. ADVANCE DIRECTIVES:: none on file Has patient been provided with info about the portal/API?: Yes Did the patient sign up for the portal?: No CODE STATUS:: Full Code INSURANCE COVERAGE / FINANCIAL ISSUES:: self pay CURRENT HOME/COMMUNITY SERVICES/EQUIPMENT:: none currently PRIMARY CARE PHYSICIAN:: none POTENTIAL DISCHARGE NEEDS:: PCP. Insurance. Support with Medication PATIENT/FAMILY EDUCATION NEEDS:: Review of discharge instructions, limitations, activity, follow up plan, Ask Me Three TRANSPORTATION:: via private vehicle with family/friend PLAN:: Anticipate Michael will be discharged home with no new services when medically cleared by provider. He will follow up with the PCP assigned at discharge and transport with family. CM will support Michael and assess for ongoing discharge concerns.
[2022-10-24] MEDS: Methylphenidate 10 MG TAB 5 MG PO (10:47)
[2022-10-24] MEDS: Normal Saline Flush 10 ML SYR IVP (10:47)
[2022-10-24 11:22] LABS: PTT Activated 39.9 sec (21.5-31.9)
--- NOTE | 2022-10-24 15:19 | DSE_ITS ---
Date of service: 10/24/22 Time of Service: 15:19 DS: Diagnosis Discharge Diagnosis (1) Pulmonary embolism: Status: Chronic (2) RUQ abdominal pain: Status: Acute (3) Antithrombin III deficiency: Status: Chronic (4) Depression: (5) ADHD (attention deficit hyperactivity disorder): Status: Chronic Discharge Plan Disposition Patient Disposition: Home Condition: Stable Discharge Details Reason For Visit: Pulmonary Embolus, RUQ Abdominal Pain Admit Date/Time: 10/24/22 02:05 Admit Provider: Myles Yang Attending Provider: Myles Yang Primary Care Provider: None,None Hospital Course Hospital Course: This is a 26 year old male with history of antithrombin deficiency, pulmonary embolism who presented to ED for?cough, chest pain, shortness of breath, and fatigue.?He was previously on Eliquis but could not afford it so he was changed to Coumadin.?He has missed his last few days of Coumadin, additionally his states his INR is usually run around 1-1.2, which is consistent with labs obtained in the emergency department with INR 1.1. CT shows evidence of nonocclusive segmental right lower lobe pulmonary artery hypoattenuation filling defect concerning for nonocclusive embolus.? This is the location of his previous PE, and clearly shows notable incomplete resolution or new worsening component since his last imaging.? Bedside echo was performed and shows no evidence of severe right heart strain. He was started on a heparin drip and admitted to the hospitalist service under observation status for further evaluation. He was ordered to have a right upper quadrant ultrasound to evaluate right-sided abdominal pain which she had had in the past and no evidence of active gallbladder disease was evident on that evaluation or in his abdominal ultrasound performed today. He remained hemodynamically stable oxygenating well on room air. He did have a formal echocardigram to evaluate for evidence of heart strain. Case management did provide a card for Eliquis that would cover with a $10 a month co-pay. He states he is able to afford that as that is equivalent to his Coumadin monthly co-pay. He will receive a 24-hour dose of enoxaparin to cover him till tomorrow when he can obtain his Eliquis prescription. He is stable and ready for discharge to home with no new services. Discharge discussed with Dr. Lopez Home Meds and New Rx's Prescriptions: New Eliquis DVT-PE Treat 30D Start 5 mg (74 tabs) tablets,dose pack 5 mg PO ONCE Qty: 74 0RF Continued methylphenidate HCl [Ritalin] 5 mg tablet 5 mg PO 2XD Patient Comments: Take 1 tablet by mouth twice a day Discontinued warfarin 5 mg tablet 5 mg PO DAILY Patient Comments: TAKE ONE TABLET BY MOUTH EVERY DAY OR DIRECTED Rx Instructions: Pt takes 10mg one day and 5 the next repeating doses in this fashion, 10/23/22 took 10mg Discharge Instructions Instructions: Pulmonary Embolism (DC) Additional Instructions: You have received a daily dose of Lovenox which will cover you until tomorrow afternoon. Please start your Eliquis 10 mg twice daily tomorrow early evening and then continue taking Eliquis 10 mg twice daily for a total of 7 days (14 doses) and then continue at 5 mg twice daily thereafter. Please discuss hematology referral with your primary care provider at your follow-up appointment. Referrals: Lester Rico [ NON-[facility] STAFF PHYSICIAN] - Activity:: Activity as Tolerated Equipment/Supplies:: No Equipment Needed Diet:: As Tolerated Discharge Orders Discharge Orders: Discharge Order (Routine); Ordered 10/24/22 Ordered By: Snow Spangler DS: Summary Time Spent with Patient providing and/or coordinating discharge services: Greater than 30 minutes Status at Discharge Functional status at discharge: independent ambulation Overall status at discharge: patient is progressing back to baseline Mental Status: mental status grossly normal Speech and Movement: speech and movement normal Mood: congruent mood Affect: normal affect Exam Const General: cooperative, healthy appearing and acute distress mild Nutritional Appearance: average body habitus Orientation: alert, awake and oriented x3 HENMT Head: normal to inspection, normocephalic and atraumatic Mouth: oral mucosae normal Eyes General: appearance normal, both eyes and all related structures Neck Neck: normal visual inspection, full ROM and nontender Resp Effort & Inspection: normal respiratory effort Cardio Rate: regular rate Rhythm: regular rhythm Neuro General: patient alert, patient awake and patient oriented x3 Extrem General: normal to inspection and full ROM Psych Mental Status: mental status grossly normal Speech and Movement: speech and movement normal Mood: congruent mood Affect: normal affect DS: Data Vitals/I&O Vitals and I&O: Vital Signs Temperature 35.8 C L 10/24/22 11:10 Temperature Source Tympanic 03/01/23 11:10 Pulse 42 L 10/24/22 11:10 Pulse Rhythm Regular 10/24/22 03:40 Respiratory Rate 16 10/24/22 11:10 Respiratory Effort Normal, Non-Labored 10/24/22 03:40 Respiratory Depth Normal 10/24/22 03:40 Respiratory Pattern Normal 10/24/22 03:40 Blood Pressure 106/65 10/24/22 11:10 Blood Pressure Position Sitting 10/23/22 22:13 Pulse Oximetry 99 10/24/22 11:10 Oxygen Delivery Method Room Air 10/24/22 11:10 Oxygen Flow Rate 0 10/24/22 11:10 Pain Level 0 10/24/22 11:10 Comment SB on monitor. 10/24/22 00:21 Intake & Output 10/23/22 10/24/22 10/24/22 23:59 11:59 23:59 Intake Total 1848.083 / 1848.083 Balance 1848.083 / 1848.083 Weight 83.915 kg Intake: IV 1848.083 / 1848.083 Other: Stool Size Moderate Voiding Methods Toilet Data Completed and Pending Labs on day of discharge: Labs from last 24 hours 10/24/22 10/24/22 10/24/22 16:55 10:55 06:48 WBC RBC Hgb Hct MCV MCH MCHC RDW Plt Count MPV Immature Gran % Neutrophils % Lymphocytes % Monocytes % Eosinophils % Basophils % Nucleated RBC % Absolute Neutrophils Absolute Lymphocytes Absolute Monocytes Absolute Eosinophils Absolute Basophils PT INR APTT Pending 39.9 H Cancelled VBG Lactate Sodium Potassium Chloride Carbon Dioxide Anion Gap BUN Creatinine Est GFR (CKD-EPI 2020) Glucose Calcium Magnesium Total Bilirubin AST ALT Alkaline Phosphatase Troponin I NT-Pro-B Natriuret Pep Total Protein Albumin COVID-19 Source SARS-CoV-2 (PCR) Influenza Type A (PCR) Influenza Type B (PCR) RSV (PCR) 10/24/22 10/24/22 10/24/22 06:15 06:15 06:15 WBC 9.17 RBC 4.39 Hgb 12.7 L Hct 39.0 L MCV 89 MCH 28.9 MCHC 32.6 RDW 13.0 Plt Count 238 MPV 10.1 Immature Gran % Neutrophils % Lymphocytes % Monocytes % Eosinophils % Basophils % Nucleated RBC % Absolute Neutrophils Absolute Lymphocytes Absolute Monocytes Absolute Eosinophils Absolute Basophils PT INR APTT VBG Lactate Sodium 142 Potassium 3.9 Chloride 109 H Carbon Dioxide 25.7 Anion Gap 7.3 BUN 15 Creatinine 0.9 Est GFR (CKD-EPI 2020) 118.57 Glucose 103 Calcium 8.3 L Magnesium 1.9 Total Bilirubin 0.3 AST 13 L ALT 19 Alkaline Phosphatase 55 Troponin I NT-Pro-B Natriuret Pep Total Protein 6.1 L Albumin 3.3 L COVID-19 Source SARS-CoV-2 (PCR) Influenza Type A (PCR) Influenza Type B (PCR) RSV (PCR) 10/24/22 10/24/22 10/23/22 06:15 06:15 22:57 WBC RBC Hgb Hct MCV MCH MCHC RDW Plt Count MPV Immature Gran % Neutrophils % Lymphocytes % Monocytes % Eosinophils % Basophils % Nucleated RBC % Absolute Neutrophils Absolute Lymphocytes Absolute Monocytes Absolute Eosinophils Absolute Basophils PT 11.4 H INR 1.1 APTT 62.6 H VBG Lactate 0.9 Sodium Potassium Chloride Carbon Dioxide Anion Gap BUN Creatinine Est GFR (CKD-EPI 2020) Glucose Calcium Magnesium Total Bilirubin AST ALT Alkaline Phosphatase Troponin I < 50 NT-Pro-B Natriuret Pep Total Protein Albumin COVID-19 Source SARS-CoV-2 (PCR) Influenza Type A (PCR) Influenza Type B (PCR) RSV (PCR) 10/23/22 10/23/22 10/23/22 22:43 22:40 22:40 WBC 11.25 H RBC 4.73 Hgb 13.9 Hct 41.8 MCV 88 MCH 29.4 MCHC 33.3 RDW 12.7 Plt Count 270 MPV 9.9 Immature Gran % 0.3 Neutrophils % 53.9 Lymphocytes % 36.4 Monocytes % 7.2 Eosinophils % 1.6 Basophils % 0.6 Nucleated RBC % 0.0 Absolute Neutrophils 6.06 Absolute Lymphocytes 4.10 H Absolute Monocytes 0.81 H Absolute Eosinophils 0.18 Absolute Basophils 0.07 PT 11.6 H INR 1.1 APTT 28.8 VBG Lactate Sodium Potassium Chloride Carbon Dioxide Anion Gap BUN Creatinine Est GFR (CKD-EPI 2020) Glucose Calcium Magnesium Total Bilirubin AST ALT Alkaline Phosphatase Troponin I NT-Pro-B Natriuret Pep Total Protein Albumin COVID-19 Source Cancelled SARS-CoV-2 (PCR) Cancelled Influenza Type A (PCR) Cancelled Influenza Type B (PCR) Cancelled RSV (PCR) Cancelled 10/23/22 10/23/22 22:40 22:26 WBC RBC Hgb Hct MCV MCH MCHC RDW Plt Count MPV Immature Gran % Neutrophils % Lymphocytes % Monocytes % Eosinophils % Basophils % Nucleated RBC % Absolute Neutrophils Absolute Lymphocytes Absolute Monocytes Absolute Eosinophils Absolute Basophils PT INR APTT VBG Lactate Sodium 142 Potassium 3.7 Chloride 105 Carbon Dioxide 28.5 Anion Gap 8.5 BUN 18 Creatinine 1.1 Est GFR (CKD-EPI 2020) 93.19 Glucose 105 Calcium 8.7 Magnesium Total Bilirubin 0.3 AST 13 L ALT 25 Alkaline Phosphatase 61 Troponin I < 50 NT-Pro-B Natriuret Pep 34 Total Protein 7.3 Albumin 3.9 COVID-19 Source Nasopharynx SARS-CoV-2 (PCR) Negative Influenza Type A (PCR) Negative Influenza Type B (PCR) Negative RSV (PCR) Negative PFSH All Active Problems (Updated 10/24/22 @ 03:34 by Myles Yang) Antithrombin III deficiency (Chronic) RUQ abdominal pain (Acute) ADHD (attention deficit hyperactivity disorder) (Chronic) Pulmonary embolism (Chronic) Pulmonary embolism (Chronic) Pulmonary infarct (Acute) Community acquired pneumonia (Acute) Antithrombin deficiency (Acute) Patient desires (Acute) Medical History (Updated 10/24/22 @ 03:34 by Myles Yang) Chronic pain in right shoulder Depression Surgical History H/O wisdom tooth extraction S/p bilateral myringotomy with tube placement Family History Mother No problems noted. Father Essential hypertension Antithrombin III deficiency Stroke Grandfather Personal history of malignant neoplasm BREAST Grandfather Personal history of malignant neoplasm COLON Grandmother No problems noted. Grandmother No problems noted. Social History Smoking/Tobacco Use Status: Current every day Smoking risk assessment performed?: Yes Alcohol Intake: current Alcohol Intake frequency: a few times a week Alcohol type: hard liquor Drug use: Daily Substance use type: marijuana Do you feel safe at home: Yes Do you feel safe in your relationship?: Yes Time Spent with Patient Time Spent with Patient: 45-69 minutes Time was spent: preparing to see the patient(eg.review tests), obtaining and/or reviewing separately otained hiistory, ordering medications,tests, procedures, referring, communicating with other health acute care physician, indepentently interpreting results, counseling the patient and care coordination
--- NOTE | 2022-10-24 16:26 | PDOC.CMDIS ---
- If Service Date Differs Date of service: 10/24/22 Time of Service: 16:26 LACE Index Scoring Tool - Questions: Length of Stay (in days): 1 Acuity (Admit via E.D.?): Yes E.D. Visits: 2 - Answers: Total Score: 6 Risk of Readmission: Low Risk Care Management Discharge Reason for Hospitalization: PE Discharge Plan: Michael will be discharged home with no new services when medically cleared by provider. He will follow up with the PCP assigned at discharge and transport with family. Patient/Family Education Needs: Review of discharge instructions, limitations, activity, follow up plan, Ask Me Three
[2022-10-24] MEDS: Enoxaparin 120 MG/0.8 ML SYR SC (16:48)
== END 2022-10-24 17:04 | disposition home or self-care (01) ==
LOC: ER 10-24 03:10 → MS 10-24 03:37
PROVIDERS: Internal Medicine; Admitting Provider Family Medicine; Emergency Provider Student in an Organized Health Care Education/Training Program; Visit Provider Family Medicine
DX: I26.99 Other pulmonary embolism without acute cor pulmonale (principal); R06.02 Shortness of breath; R10.11 Right upper quadrant pain; D68.59 Other primary thrombophilia; F32.9 Major depressive disorder, single episode, unspecified; F90.9 Attention-deficit hyperactivity disorder, unspecified type; R07.89 Other chest pain; Z79.01 Long term (current) use of anticoagulants; Z86.711 Personal history of pulmonary embolism; M25.511 Pain in right shoulder; G89.29 Other chronic pain; F32.A Depression, unspecified; F17.210 Nicotine dependence, cigarettes, uncomplicated; F12.90 Cannabis use, unspecified, uncomplicated; R10.31 Right lower quadrant pain; R05.9 Cough, unspecified
CPT/HCPCS: 36415; 71275; 80053; 85027; 87637; 93005; 93308; 96361; 96365; 96366; 96372; 96376; 99285; 76705; 83605; 83735; 83880; 84484; 85025; 85610; 85730; 93010; 93306; 99236; G0378; J1650; J3490

== ENCOUNTER 2022-11-08 12:03 | Emergency (ER) | payer MEDICAID, SELFPAY ==
[2022-11-08] VITALS (38 sets, daily range): BP systolic 109–128; BP diastolic 31–78; PULSE 44–85; RESP 9–30; TEMP 36.5–37.1; O2SAT 91–100
--- NOTE | 2022-11-08 12:15 | RT.EKG_ITS ---
APPROVED REPORT Exam: Resting ECG Reason for Exam: chest pain, dizziness Patient Location: E HR:62 bpm ECG Measurements Heart Rate 62 AXIS CA 114 P 19 QRSd 122 QRS 57 QT 444 T 46 QTc 451 Conclusion Sinus rhythm Right bundle branch block.
--- NOTE | 2022-11-08 12:30 | DI.CT_ITS ---
Exam(s) CT CHEST PE CTA EXAM: CT CHEST PE CTA CLINICAL HISTORY: R chest pain, recent PE 10/23. TECHNIQUE: Imaging Protocol: Axial CT angiography was performed with multi-slice acquisition and mu lti-planar reconstructions as well as axial, coronal and sagittal MIP reconstructions. CONTRAST MATERIAL: Intravenous: Omnipaque 350 Contrast volume:100 ml COMPARISON: CT CT CHEST PE CTA from 12/07/[address] CHEST PE CTA from 10/23/2022 FINDINGS: Pulmonary Arteries: No evidence of filling defect to suggest pulmonary emboli. Previously noted righ t lower lobe emboli not visible on current exam. Tracheobronchial tree: Patent where visualized. Mediastinum and Josey: No dominant adenopathy or fluid collection. Pulmonary parenchyma: No consolidation or dominant measurable mass. Mild emphysematous changes at the lung apices. Dependent changes at the lung bases. Pleura: No effusion or pneumothorax. Heart: The heart is not dilated. No coronary artery calcifications are seen. Aorta: Thoracic aorta non-dilated. No aneurysm. No dissection. Upper abdomen: Unremarkable. Bones: Unremarkable for age. Tubes, Catheters, and Lines: None IMPRESSION: No evidence of pulmonary embolism or other acute abnormality.. RADIATION DOSE DELIVERED: 380.3mGy.cm Total DLP DATA REPOSITORY: All CT scans at this facility are submitted to the National Radiology Data Registry (NRDR) Dose Index Registry (DIR) with the [employer] (ACR). RADIATION OPTIMIZATION: All CT scans at this facility use at least one of these dose optimization te chniques: automated exposure control; mA and/or kV adjustment per patient size (includes targeted exa ms where dose is matched to clinical indication); or iterative reconstruction.
--- NOTE | 2022-11-08 12:32 | W.ED.GENAD ---
Discharge Plan Disposition Patient Disposition: Home Condition: Improving Discharge Details Clinical Impression: Near syncope Primary Care Provider: Unknown,Unknown ED Provider: Timo Dave Home Meds and New Rx's Prescriptions: Continued methylphenidate HCl [Ritalin] 5 mg tablet 5 mg PO 2XD Patient Comments: Take 1 tablet by mouth twice a day Eliquis 5 mg tablet See Rx Instructions .ROUTE .COMPLEX Qty: 74 0RF Rx Instructions: 10 mg PO BID x 14 doses, starting early afternoon of 10/25/22, then 5 mg PO BID Has a coupon Discharge Instructions Instructions: Near Syncope (ED) Additional Instructions: Your work-up in the emergency department included cardiac troponin x2, CAT scan of the chest, screening laboratories. These were reassuring and did not show evidence of recurrent pulmonary embolism. Continue your Eliquis as previously prescribed. You should now take 5 mg 2 times per day. Follow-up with regular doctor if not improved in 3 to 5 days time. Return to the ER for any acute concerns. Home to rest today. Medical Decision Making 27-year-old male with a history of pulmonary embolism, who was noted to have PE on recent admission of October 23. He was discharged on Eliquis which he states he has been taking twice daily. Today after going to work he felt shortness of breath and mild right chest discomfort which brought him to the ER for evaluation. He notes this is associated with lightheadedness but no syncope. He is improving by the time of arrival. He has a normal oxygen saturation on room air, pulse ranges approximately 50-70. Patient placed on a monitor technician, screening laboratories obtained. Given his history of recent PE he is referred for CT images. Patient's troponin is normal. His CBC is within normal limits and chemistry is unremarkable. CT scan of the chest shows no evidence of PE or other acute abnormality. Patient observed on monitor technician, he continually improved and felt subjectively better. A repeat troponin and EKG were obtained and unremarkable. Patient remains improved. He is reassured. He is discharged home in stable and improved condition. He will continue his Eliquis as previously prescribed HPI General Mode of arrival: ambulatory. Date/Time Provider Initiated Documentation: 11/08/22 12:18. Limitations to Documentation: no limitations. Information obtained by: patient. History of Present Illness 27 year old M presents to the emergency department with the chief complaint of Feeling short of breath, right-sided chest discomfort, described as mild and similar to prior episodes, Quality is described as dull and constant, and is localized to the chest and right. Patient reports no radiation. Patient started experiencing this hour(s) and it has been constant. No relieving factors improve symptom(s), No exacerbating factors reported . Patient notes denies cough, fever/chills and syncope. Patient did receive the following treatments prior to arrival, none Related Data Home Medications Medication Instructions Recorded Confirmed methylphenidate HCl 5 mg tablet 5 mg PO 2XD 10/23/22 10/23/22 (Ritalin) apixaban 5 mg tablet (Eliquis) See Rx Instructions .Route 10/24/22 .COMPLEX #74 tabs Previous Rx's Medication Instructions Recorded apixaban 5 mg tablet (Eliquis) See Rx Instructions .Route 10/24/22 .COMPLEX #74 tabs Allergies Allergy/AdvReac Type Severity Reaction Status Date / Time No Known Allergies Allergy Unverified 10/23/22 22:44 General Stated Complaint: Chest Pain MJ: 3 Review of Systems Narrative: 7 systems reviewed and otherwise negative. Denies substance abuse. No leg pain or swelling. No recent upper respiratory symptoms. PFSH All Active Problems (Updated 11/08/22 @ 16:13 by Timo Dave MD) Near syncope (Acute) Antithrombin III deficiency (Chronic) RUQ abdominal pain (Acute) ADHD (attention deficit hyperactivity disorder) (Chronic) Pulmonary embolism (Chronic) Pulmonary embolism (Chronic) Pulmonary infarct (Acute) Community acquired pneumonia (Acute) Antithrombin deficiency (Acute) Patient desires (Acute) Medical History Chronic pain in right shoulder Depression Surgical History H/O wisdom tooth extraction S/p bilateral myringotomy with tube placement Family History Mother No problems noted. Father Essential hypertension Antithrombin III deficiency Stroke Grandfather Personal history of malignant neoplasm BREAST Grandfather Personal history of malignant neoplasm COLON Grandmother No problems noted. Grandmother No problems noted. Social History Smoking/Tobacco Use Status: Current every day Tobacco Type: cigarettes Smoking risk assessment performed?: Yes Alcohol Intake: current Alcohol Intake frequency: a few times a week Alcohol type: hard liquor Drug use: Daily Substance use type: marijuana Do you feel safe at home: Yes Do you feel safe in your relationship?: Yes Exam Narrative Exam Narrative: GEN: awake, alert, oriented 3. Pleasant, well groomed, interactive. HEAD: Normocephalic, atraumatic ENT: Mucous membranes moist, oropharynx unremarkable, External ear exam unremarkable EYES: PERRL, EOMI NECK: Full ROM, no ANTHONY, no menigismus CHEST/RESP: Nontender, clear to auscultation bilateral, no wheeze/rhonchi/rales CARDIOVASCULAR: RRR, no murmur, rub shahab. 2+ Rad pulse bilateral ABDOMEN: Soft, nontender, no mass. +Bowel sounds EXT: Full ROM, no edema, no rash Neuro: Grossly normal neurologic exam, conversant, interactive. Psych: Speech fluent, thoughts congruent, affect flat Course Vital Signs Vital signs: Vital Signs Temperature 37.1 C 11/08/22 12:14 Pulse 72 11/08/22 12:14 Respiratory Rate 30 H 11/08/22 12:14 Blood Pressure 126/71 11/08/22 12:14 Pulse Oximetry 100 11/08/22 12:14 Temperature 37.1 C 11/08/22 12:14 Pulse 72 11/08/22 12:14 Respiratory Rate 30 H 11/08/22 12:14 Respiratory Effort Normal 11/08/22 12:24 Respiratory Depth Normal 11/08/22 12:24 Respiratory Pattern Normal 11/08/22 12:24 Blood Pressure 126/71 11/08/22 12:14 Blood Pressure Position Sitting 11/08/22 12:14 Pulse Oximetry 100 11/08/22 12:14 Oxygen Delivery Method Room Air 11/08/22 12:14 Oxygen Flow Rate 0 11/08/22 12:14 Pain Level 8 11/08/22 12:14
[2022-11-08 12:44] LABS: Abs Immature Grans 0.01 10^3/uL (0.0-0.06); Absolute Basophil Count 0.07 10^3/uL (0.0-0.2); Absolute Lymphocyte Count 3.72 10^3/uL (1.2-3.4); Absolute Monocyte Count 0.53 10^3/uL (0.1-0.8); Absolute Neutrophil Count 4.38 10^3/uL (1.2-6.7); Basophils % 0.8; Eosinophils % 1.1; HGB 15.3 g/dL (13.5-17.5); Immature Grans % 0.1; Lymphocytes % 42.2; MCHC 35.6 % (32.0-36.0); MCV 87 fL (80-95); MPV 10.1 fL (8.0-11.0); Neutrophils % 49.8; Platelet Count 318 10^3/uL (130-400); RBC 4.94 10^6/uL (4.36-5.78); RDW 12.8 % (11.8-14.1); RDW-SD 39.9 fL; WBC 8.81 10^3/uL (4.4-10.8)
[2022-11-08] MEDS: ACETAMINOPHEN 1,000 MG/100 ML BTL 400 MG IVPB (12:45)
[2022-11-08 13:14] LABS: ALT 23 U/L (16-63); AST 18 U/L (15-37); Albumin 4.5 g/dL (3.4-5.0); Alkaline Phosphatase 66 U/L (46-116); Anion Gap 11.6 mmol/L (3-11); BUN 15 mg/dL (7-18); Bilirubin, Total 0.5 mg/dL (0.2-1.0); CO2 24.4 mmol/L (21.0-32.0); CREATININE 1.2 mg/dL (0.70-1.30); Calcium 9.4 mg/dL (8.5-10.1); Chloride 103 mmol/L (98-107); Estimated GFR 83.95 (mL/min/1.73m2); Glucose 91 mg/dL (74-106); Magnesium 1.8 mg/dL (1.8-2.4); Potassium 3.3 mmol/L (3.5-5.1); Sodium 139 mmol/L (136-145); Troponin I < 50 ng/L (<or=60)
[2022-11-08] MEDS: Omnipaque 350 MG/ML 100 ML BTL IJ (14:01)
[2022-11-08] MEDS: Normal Saline - Diluent 50 ML VIAL IJ (14:02)
--- NOTE | 2022-11-08 15:00 | RT.EKG_ITS ---
APPROVED REPORT Exam: Resting ECG Reason for Exam: near syncope Patient Location: E HR:48 bpm ECG Measurements Heart Rate 48 AXIS ID 122 P -17 QRSd 117 QRS 22 QT 451 T 20 QTc 404 Conclusion Sinus bradycardia..RBBB pattern
[2022-11-08 15:56] LABS: Troponin I < 50 ng/L (<or=60)
== END 2022-11-08 16:36 | disposition home or self-care (01) ==
PROVIDERS: Emergency Provider Emergency Medicine
DX: R55 Syncope and collapse (principal); Z86.711 Personal history of pulmonary embolism; Z79.01 Long term (current) use of anticoagulants
CPT/HCPCS: 36415; 71275; 80053; 93005; 96374; 99285; 83735; 84484; 85025; 93010; J0131; J3490

== ENCOUNTER 2024-09-10 06:33 | Emergency (ER) | payer MEDICAID, SELFPAY | END 2024-09-10 06:41 | DX: H57.11 Ocular pain, right eye (principal); X58.XXXA Exposure to other specified factors, initial encounter; F17.210 Nicotine dependence, cigarettes, uncomplicated; F12.90 Cannabis use, unspecified, uncomplicated | CPT/HCPCS: 99283 ==

== ENCOUNTER 2024-11-06 15:55 | Outpatient (REF) | payer MEDICAID, SELFPAY ==
[2024-11-06 15:17] LABS: HGB 14.9 g/dL (13.5-17.5); MCH 30.4 pg (27.0-33.0); MCHC 33.9 % (32.0-36.0); MCV 90 fL (80-95); MPV 10.1 fL (8.0-11.0); Platelet Count 320 10^3/uL (130-400); RDW 12.7 % (11.8-14.1); RDW-SD 42.4 fL; WBC 10.44 10^3/uL (4.4-10.8)
== END 2024-11-06 15:56 | disposition home or self-care (01) ==
LOC: NCHCN 15:55
PROVIDERS: Visit Provider Physician Assistant
DX: D68.59 Other primary thrombophilia (principal)
CPT/HCPCS: 85027